=== PATIENT | female | born 1940 | race Caucasian/White ===

== ENCOUNTER → 2017-08-09 | Outpatient (CLI) | payer OTHER ==
[2016-02-21 18:27] VITALS: BP 175/88
--- NOTE | 2017-08-11 09:33 | MG ---
HISTORY: SCREENING Comparison: Multiple priors dating back to October 09, 2008 FINDINGS: Bilateral CC and MLO projections of the right and left breast were obtained. Heterogeneously dense f ibroglandular tissue is seen to be present without significant interval change. No suspicious chris ectural distortion, mass or clustered microcalcifications can be observed to suggest malignancy. No skin thickening or nipple retraction is appreciated. No pathological lymphadenopathy can be identif ied. Benign-appearing calcifications are noted within the right and left breast. IMPRESSION: NO RADIOGRAPHIC EVIDENCE OF MALIGNANCY. ACR CATEGORY 2 - benign findings. FOLLOW-UP EXAM 1 YEAR. Diagnostic CAD was utilized and reviewed. * 0 (ZERO) - ASSESSMENT INCOMPLETE; ADDITIONAL IMAGING IS NEEDED. * 1/ (ONE) - NEGATIVE. * 2/II (TWO) - BENIGN FINDINGS. * 3/III (THREE) - PROBABLY BENIGN FINDING; SHORT INTERVAL FOLLOW-UP SUGGESTED. * 4/IV (FOUR) - SUSPICIOUS ABNORMALITY; BIOPSY SHOULD BE CONSIDERED. * 5/V - HIGHLY SUSPICIOUS OF MALIGNANCY; BIOPSY SHOULD BE PERFORMED. A NEGATIVE X-RAY REPORT SHOULD NOT DELAY BIOPSY IF A DOMINANT OR CLINICALLY SUSPICIOUS MASS IS PRESENT; 4 TO 8 PERCENT OF CANCERS ARE NOT IDENTIFIED BY X-RAY. A NEGA TIVE REPORT MAY REINFORCE THE CLINICAL IMPRESSION. ADENOSIS AND DENSE BREASTS MAY OBSCURE AN UNDERLY ING NEOPLASM. Reported By:
== END ==
LOC: RAD 09:52
PROVIDERS: ATTEND Specialist
DX: Z12.31 Encounter for screening mammogram for malignant neoplasm of breast (principal)
CPT/HCPCS: 77067

== ENCOUNTER 2018-02-16 08:07 | Day surgery (SDC) | payer OTHER ==
[2018-02-16] MEDS ORDERED: D5 LR 1000 ML 1,000 ML IV ONE (08:17)
[2018-02-16] MEDS ORDERED: DIPRIVAN VIAL 20 ML ONE ×2 (10:17→10:31)
[2018-02-16 11:03] VITALS: BP 123/62
== END 2018-02-16 11:02 | disposition home or self-care (01) ==
LOC: SURG1 08:07
PROVIDERS: ATTEND Internal Medicine Gastroenterology
PROC: 0DJD8ZZ Inspection of Lower Intestinal Tract, Via Natural or Artificial Opening Endoscopic (ICD-10-PCS; principal; 2018-02-16 10:15)
PROC: 0DBK8ZX Excision of Ascending Colon, Via Natural or Artificial Opening Endoscopic, Diagnostic (ICD-10-PCS; principal; 2018-02-16 10:15)
DX: Z12.11 Encounter for screening for malignant neoplasm of colon (principal); K92.1 Melena; R19.4 Change in bowel habit; K63.5 Polyp of colon; K64.0 First degree hemorrhoids; Z86.010 Personal history of colon polyps; D12.2 Benign neoplasm of ascending colon
CPT/HCPCS: 99100; A4217; J3490; J7120

== ENCOUNTER 2021-09-21 09:13 | Inpatient (IN) ==
[2021-09-21 09:24] VITALS: BMI 32.2
--- NOTE | 2021-09-21 09:28 | DR.AMS ---
HPI Time Seen Time Seen by Provider: 09/21/21 09:24 Complaint Cheif Complaint Doctors Comments: 81 y/o female brought in via EMS for altered mental status, weakness. Has been fighting shingles past 2 weeks. Today developed diffuse weakness, conusion. Pt not a great historian. Denies headache, cough or dyspnea. Admits to nausea. No vomiting or diarrhea. No fever or chills. Denies urinary difficulty. Nothing makes it better , nothing makes it worse. Per family, having worsening weakness, confusion. COVID-19 Coronavirus risk:travel/contact w/high risk person: No Has patient experienced Coronavirus symptoms: Yes Reviewed Nurses Notes Reviewed: Yes Source History Provided: Patient, Family Member and EMS Mode of Arrival Mode of Arrival: EMS PMH PMH Past Medical History: Arthritis, Asthma, Dyslipidemia, Hypertension, Hypothyroidism and Kidney Stones Past Surgical History: Yes Surgical History: Ortho Surgery Family History Family Medical History: Diabetes Mellitus, Cancer, [place] and Hypertension Social History Do you use any recreational Drugs:: No ROS Review of Systems Constitutional: Malaise and Weakness Eyes: No Symptoms Reported ENTM: No Symptoms Reported Respiratoy: No Symptoms Reported Cardiovascular: No Symptoms Reported Gastrointestinal/Abdominal: Nausea Genitourinary: No Symptoms Reported Neurological: Weakness Musculoskeletal: No Symptoms Reported Integumentary: Rash (shingles) Hematologic/Lymphatic: No Symptoms Reported Psychiatric: Anxiety All Other Systems: Reviewed and Negative PE Vitals Vital Signs: Temp Pulse Resp BP Pulse Ox 09/21/21 14:00 89 47 H 159/69 91 L 09/21/21 13:45 88 35 H 96 09/21/21 13:30 88 30 H 178/76 96 09/21/21 13:15 87 36 H 96 09/21/21 13:00 89 30 H 162/72 96 09/21/21 12:45 88 47 H 96 09/21/21 12:30 88 27 H 168/74 97 09/21/21 12:15 87 33 H 97 09/21/21 12:00 87 30 H 168/71 98 09/21/21 11:45 86 30 H 97 09/21/21 11:30 88 30 H 170/77 98 09/21/21 11:15 87 57 H 98 09/21/21 11:00 87 32 H 174/76 97 09/21/21 10:45 86 33 H 98 09/21/21 10:30 86 32 H 159/74 97 09/21/21 10:15 89 44 H 09/21/21 10:00 87 30 H 158/75 09/21/21 09:45 87 34 H 95 09/21/21 09:30 89 40 H 162/75 95 09/21/21 09:23 91 H 34 H 95 09/21/21 09:19 98.1 F 94 H 22 169/77 95 08/05/21 19:09 167/73 General Limitations: No Limitations General Appearance: Alert, In No Apparent Distress and Anxious Head Head Exam: Normal Inspection, Atraumatic and Normocephalic Eyes Eye exam: Normal Appearance, PERRL and EOMI ENT ENT Exam: Normal Exam and Other (mucous membranes a bit dry) Nose Exam: Normal Nose Exam Neck Neck Exam: Normal Inspection and Full ROM; negative Tenderness Chest Chest Inspection: Normal Inspection Respiratory Respiratory Exam: Normal Lung Sounds Bilat; negative Accessory Muscle Use and Respiratory Distress Respiratory Exam: Bilateral: Clear to Auscultation Cardiovascular Cardiovascular Exam: Regular Rate, Normal Rhythm and Normal Heart Sounds Abdominal Exam Abdominal Exam: Normal Inspection, Normal Bowel Sounds and Soft; negative Tenderness Extremities Extremities Exam: Normal Inspection and Full ROM; negative Tenderness and Edema Neurological Neurological Exam: Alert, CN II-XII Intact and Other (+ fine tremor); negative Oriented X3 and Motor Sensory Deficit Psychological Psychiatric Exam: Anxious Skin Skin Exam: Warm and Dry MDM Differential Diagnosis Metabolic: Dehydration and Hyponatremia Infectious: UTI COURSE Treatment Treatment: 81 y/o female with increaing weakness and confusion, gradually worsening. No focal deficits. W/u initiated. 1318 - no obvious cause for her current condition. CT of head without acute abnormalities. Labs overall acceptable. TSH elevated a bit, needs higher dose of thyroid replacement medication. 1448 - no urine to collect so far. Discussed with Dr Spence's nurse. Pt currently being treated for a UTI, will admit for weakness/altered mental status/UTI. ROR Labs Reviewed Laboratory Results Reviewed?: Yes Result Diagrams: 09/21/21 09:42 09/21/21 10:05 Laboratory: WBC 10.5 X10^3/uL (3.6-10.0) H 09/21/21 09:42 RBC 4.86 X10^6/uL (3.5-5.4) 09/21/21 09:42 Hgb 15.2 g/dL (12.0-16.0) 09/21/21 09:42 Hct 44.1 % (36.0-47.0) 09/21/21 09:42 MCV 90.8 fL (80.0-100.0) 09/21/21 09:42 MCH 31.2 pg (27.0-34.0) 09/21/21 09:42 MCHC 34.4 g/dL (33.0-35.0) 09/21/21 09:42 RDW 15.0 % (11.6-16.5) 09/21/21 09:42 Plt Count 270 X10^3/uL (150.0-450.0) 09/21/21 09:42 MPV 9.1 fL (7.4-11.0) 09/21/21 09:42 Neut % (Auto) 61.8 % (42.0-75.0) 09/21/21 09:42 Lymph % (Auto) 25.5 % (21.0-51.0) 09/21/21 09:42 [place] % (Auto) 10.4 % (0.0-13.0) 09/21/21 09:42 Eos % (Auto) 1.4 % (0.9-2.9) 09/21/21 09:42 Baso % (Auto) 0.9 % (0.2-1.0) 09/21/21 09:42 Neut # (Auto) 6.5 x10^3/uL (2.2-4.8) H 09/21/21 09:42 Lymph # (Auto) 2.7 X10^3/uL (1.3-2.9) 09/21/21 09:42 [place] # (Auto) 1.1 x10^3/uL (0.3-0.8) H 09/21/21 09:42 Eos # (Auto) 0.2 x10^3/uL (0.0-0.2) 09/21/21 09:42 Baso # (Auto) 0.1 X10^3/uL (0.0-0.1) 09/21/21 09:42 Absolute Nucleated RBC 0.1 /100WBC 09/21/21 09:42 Sodium 138 mmol/L (136-145) 09/21/21 10:05 Corrected Sodium 138 mmol/L (136-145) 09/21/21 10:05 Potassium 3.5 mmol/L (3.5-5.1) 09/21/21 10:05 Chloride 98 mmol/L (98-107) 09/21/21 10:05 Carbon Dioxide 28.9 mmol/L (21-32) 09/21/21 10:05 BUN 22 mg/dL (7-18) H 09/21/21 10:05 Creatinine 1.04 mg/dL (0.55-1.02) H 09/21/21 10:05 Est GFR (MDRD) Af Amer > 60 (>60) 09/21/21 10:05 Est GFR (MDRD) Non-Af 54 (>60) L 09/21/21 10:05 Glucose 111 mg/dL (65-99) H 09/21/21 10:05 Calcium 9.9 mg/dL (8.5-10.1) 09/21/21 10:05 Corrected Calcium 10.5 mg/dL (8.5-10.1) H 09/21/21 10:05 Total Bilirubin 0.50 mg/dL (0.2-1.0) 09/21/21 10:05 AST 34 Units/L (15-37) 09/21/21 10:05 ALT 45 Units/L (12-78) 09/21/21 10:05 Alkaline Phosphatase 108 Units/L (46-116) 09/21/21 10:05 Creatine Kinase 52 Units/L (26-192) 09/21/21 10:05 CK-MB (CK-2) < 1.0 ng/mL (0-4.0) 09/21/21 10:05 CK/CKMB % Calc 1.9 % (<4) 09/21/21 10:05 Troponin I 0.03 ng/mL (0-1.5) 09/21/21 10:05 Total Protein 7.9 g/dL (6.4-8.2) 09/21/21 10:05 Albumin 3.3 g/dL (3.4-5.0) L 09/21/21 10:05 Globulin 4.6 g/dL (2.5-4.5) H 09/21/21 10:05 Albumin/Globulin Ratio 0.7 Ratio (1.1-2.1) L 09/21/21 10:05 Lipase 120 Units/L (73-393) 09/21/21 10:05 TSH 3rd Generation 30.092 uIU/mL (0.358-3.74) H 09/21/21 10:05 SARS-CoV-2 (PCR) Negative (NEGATIVE) 09/21/21 09:54 Influenza Type A (PCR) Negative (NEGATIVE) 09/21/21 09:54 Influenza Type B (PCR) Negative (NEGATIVE) 09/21/21 09:54 RSV (PCR) Negative (NEGATIVE) 09/21/21 09:54 Other Results Comments: Labs overall acceptable. No urine yet. EKG Rate: 88 [place]: LAD Rhythm: NSR Block: None Hypertrophy: None ST: Nonsp Opioid Opioid Risk Tool Age (Chad box if 16-45): No Total: 0 Total Score Risk Category: Low Risk Copyright: Hang FISHER predicting aberrant behaviors Diagnosis Discharge Problem: Generalized weakness, Acute UTI Altered mental status Qualifiers: Altered mental status type: unspecified Qualified Code(s): R41.82 - Altered mental status, unspecified
[2021-09-21] MEDS ORDERED: NS 500 ML IV 500 ML IV ONE ×2 (09:32→09:44)
[2021-09-21 09:52] LABS: BASOPHILS # (AUTO) 0.1 X10^3/uL (0.0-0.1); BASOPHILS % (AUTO) 0.9 % (0.2-1.0); EOSINOPHILS # (AUTO) 0.2 x10^3/uL (0.0-0.2); EOSINOPHILS % (AUTO) 1.4 % (0.9-2.9); HEMATOCRIT 44.1 % (36.0-47.0); HEMOGLOBIN 15.2 g/dL (12.0-16.0); LYMPHOCYTES # (AUTO) 2.7 X10^3/uL (1.3-2.9); LYMPHOCYTES % (AUTO) 25.5 % (21.0-51.0); MEAN CORPUSCULAR HEMOGLOBIN 31.2 pg (27.0-34.0); MEAN CORPUSCULAR HGB CONC 34.4 g/dL (33.0-35.0); MEAN CORPUSCULAR VOLUME 90.8 fL (80.0-100.0); MEAN PLATELET VOLUME 9.1 fL (7.4-11.0); MONOCYTES # (AUTO) 1.1 x10^3/uL (0.3-0.8); MONOCYTES % (AUTO) 10.4 % (0.0-13.0); NEUTROPHILS # (AUTO) 6.5 x10^3/uL (2.2-4.8); NEUTROPHILS % (AUTO) 61.8 % (42.0-75.0); PLATELET COUNT 270 X10^3/uL (150.0-450.0); RED BLOOD COUNT 4.86 X10^6/uL (3.5-5.4); WHITE BLOOD COUNT 10.5 X10^3/uL (3.6-10.0)
--- NOTE | 2021-09-21 10:19 | RAD ---
HISTORYAMS, WEAKNESS ASTHMA, HTN, ORTHOSTUDYCHEST, 1 VIEWCOMPARISONNoneFINDINGSThe trachea is midline. The cardiac silhouette is unremarkable. The lungs are clear without focal infiltrate or effusion. The bony thorax is unremarkable.IMPRESSIONNo acute cardiopulmonary findings .Electronically signed by: PERLA TONEY (Sep 21, 2021 10:17:53)
--- NOTE | 2021-09-21 10:30 | CT ---
HISTORYAltered mental statusSTUDYCT head without contrastTechnique: Axial noncontrast images with coronal and sagittal reformats. Dose reduction procedures were used with mA/kv adjusted for body size.[id number]/30/2019FINDINGSThe ventricles, cortical sulci, and other CSF spaces are enlarged consistent with generalized atrophy likely age related. There is slight decreased attenuation in the periventricular white matter suggestive of small vessel vascular disease. There are no focal areas of abnormal attenuation to suggest recent or remote CVA, hemorrhage, mass lesion, or extra-axial fluid collection. The visualized sinuses are clear. The calvarium is intact.IMPRESSIONNo acute intracranial abnormalityGeneralized atrophy likely age relatedSmall-vessel diseaseElectronically signed by: DAWNA PITTS (Sep 21, 2021 10:28:26)
[2021-09-21 10:40] LABS: ALANINE AMINOTRANSFERASE 45 Units/L (12-78); ALBUMIN 3.3 g/dL (3.4-5.0); ALKALINE PHOSPHATASE 108 Units/L (46-116); ASPARTATE AMINO TRANSFERASE 34 Units/L (15-37); BLOOD UREA NITROGEN 22 mg/dL (7-18); CALCIUM 9.9 mg/dL (8.5-10.1); CARBON DIOXIDE 28.9 mmol/L (21-32); CHLORIDE 98 mmol/L (98-107); CKMB % 1.9 % (<4); COR CA(FOR HYPOALB) 10.5 mg/dL (8.5-10.1); COR NA(FOR HYPERGLY) 138 mmol/L (136-145); CREATINE KINASE 52 Units/L (26-192); CREATINE KINASE MB < 1.0 ng/mL (0-4.0); CREATININE 1.04 mg/dL (0.55-1.02); LIPASE 120 Units/L (73-393); SODIUM 138 mmol/L (136-145); TOTAL PROTEIN 7.9 g/dL (6.4-8.2); TROPONIN I 0.03 ng/mL (0-1.5); TSH (3RD GENERATION) 30.092 uIU/mL (0.358-3.74); eGFR NON BLACK RACES 54 (>60)
[2021-09-21] MEDS: D5 1/2 NS 1,000 ML 1,000 ML IV SCH (15:59)
[2021-09-21] MEDS ORDERED: BUTT CREAM (COMPOUND) TOP PRN (17:50)
[2021-09-21] MEDS: TORADOL 15 MG VIAL IVP PRN (18:44)
[2021-09-22 05:21] LABS: BASOPHILS % (AUTO) 0.5 % (0.2-1.0); EOSINOPHILS # (AUTO) 0.3 x10^3/uL (0.0-0.2); HEMATOCRIT 45.2 % (36.0-47.0); HEMOGLOBIN 15.5 g/dL (12.0-16.0); LYMPHOCYTES # (AUTO) 3.6 X10^3/uL (1.3-2.9); LYMPHOCYTES % (AUTO) 35.4 % (21.0-51.0); MEAN CORPUSCULAR HEMOGLOBIN 31.5 pg (27.0-34.0); MEAN CORPUSCULAR HGB CONC 34.2 g/dL (33.0-35.0); MEAN PLATELET VOLUME 9.2 fL (7.4-11.0); MONOCYTES # (AUTO) 0.9 x10^3/uL (0.3-0.8); MONOCYTES % (AUTO) 9.2 % (0.0-13.0); NEUTROPHILS # (AUTO) 5.3 x10^3/uL (2.2-4.8); NEUTROPHILS % (AUTO) 51.9 % (42.0-75.0); PLATELET COUNT 228 X10^3/uL (150.0-450.0); RED BLOOD COUNT 4.91 X10^6/uL (3.5-5.4); RED CELL DISTRIBUTION WIDTH 14.9 % (11.6-16.5); WHITE BLOOD COUNT 10.2 X10^3/uL (3.6-10.0)
[2021-09-22 05:32] LABS: ALANINE AMINOTRANSFERASE 42 Units/L (12-78); ALBUMIN 3.1 g/dL (3.4-5.0); ALKALINE PHOSPHATASE 98 Units/L (46-116); ASPARTATE AMINO TRANSFERASE 39 Units/L (15-37); BLOOD UREA NITROGEN 19 mg/dL (7-18); CALCIUM 9.3 mg/dL (8.5-10.1); CARBON DIOXIDE 29.8 mmol/L (21-32); CHLORIDE 99 mmol/L (98-107); COR NA(FOR HYPERGLY) 136 mmol/L (136-145); CREATININE 0.87 mg/dL (0.55-1.02); SODIUM 136 mmol/L (136-145); TOTAL PROTEIN 7.4 g/dL (6.4-8.2); eGFR NON BLACK RACES > 60 (>60)
[2021-09-22] MEDS ORDERED: POTASSIUM CHLORIDE LIQ 20 MEQ UDC PO PRN (06:43)
[2021-09-22] MEDS ORDERED: POTASSIUM CHL 60 MEQ/NS 0.45% 500 ML IV PRN (06:43)
[2021-09-22] MEDS ORDERED: MAGNESIUM SULFATE 1 GRAM/100 mL PREMIX 1 G/100 ML BAG IV PRN (06:43)
[2021-09-22] MEDS ORDERED: POTASSIUM CHL 40 MEQ/NS 0.45% 500 ML IV PRN (06:43)
[2021-09-22] MEDS ORDERED: K-DUR TAB 20 MEQ PO PRN (06:43)
[2021-09-22] MEDS ORDERED: MICRO K EXTEN CAP 10 MEQ PO PRN (06:43)
[2021-09-22] MEDS ORDERED: K-RIDER 10 MEQ/NS 100 ML 10 MEQ/100 ML BAG IV PRN (06:43)
[2021-09-22] MEDS: INVANZ INJ 1 GM VIAL 1 GM in NS 100 ML IV + SPIKE MINIBAG* 100 ML IV SCH (08:06)
[2021-09-22] MEDS: D5 1/2 NS 1,000 ML 1,000 ML IV SCH ×2 (08:06→17:02)
--- NOTE | 2021-09-22 11:01 | MRI ---
HISTORY: Weakness, AMS, slurred speechStudy: MRI Brain without contrastComparison: Head CT 09/21/2021Technique: Multiplanar multi-sequence MRI of the brain was performed with standard departmental protocolFindings:The brain parenchyma is within normal limits for age. There is hyperintense signal in the bilateral occipital sulci, with no corresponding abnormality on T2 star, likely representing sequela of supplemental oxygen, correlate clinically. Noncontrast head CT could be performed for further evaluation to exclude subarachnoid hemorrhage. There are subcortical and periventricular white matter hyperintense signal changes likely due to chronic microvascular disease. There is no restricted diffusion to suggest acute infarct. No mass, midline shift. Multiple dilated perivascular spaces are present. Please note sensitivity to detect malignancy is decreased without IV contrast.The T2 flow voids appear normal . The midline structures appear unremarkable . The soft tissues are intact . The visualized paranasal sinuses and mastoid air cells are clear. Orbits and globes are unremarkable.IMPRESSION:Nonspecific hyperintense signal in the bilateral occipital sulci. Findings can be associated with use of supplemental oxygen, correlate clinically. Subarachnoid hemorrhage felt less likely but could be further evaluated with noncontrast head CT.No evidence of acute infarction.Cerebral volume loss and nonspecific white matter changes likely due to chronic microvascular disease.Electronically signed by: KRISTIN KIDD (Sep 22, 2021 11:00:04)
[2021-09-22] MEDS: HYZAAR 50/12.5 MG PO SCH (11:26)
[2021-09-22] MEDS: LIPITOR TAB 40 MG PO SCH (11:27)
[2021-09-22] MEDS: KLONOPIN TAB 1 MG PO SCH ×2 (11:27→20:52)
[2021-09-22] MEDS: PROzac PO SCH (11:27)
[2021-09-22] MEDS: SYNTHROID 125 mcg TAB PO SCH (11:27)
[2021-09-22] MEDS: PriLOSEC PO SCH (11:27)
[2021-09-22] MEDS: LOVENOX INJ 40 MG SYR SC SCH (13:13)
--- NOTE | 2021-09-22 15:19 | DR.H&P ---
H&P - History & Physical for Day of: H&P Date: 09/21/21 - Chief Complaint Chief Complaint: AMS, WEAKNESS, SLURRED SPEECH - History of Present Illness History of Present Illness: IS A 81 YEAR OLD PATIENT OF OURS. SHE PRESENTED TO THE ER VIA EMS WITH REPORTS OF ALTERED MENTAL STATUS, WEAKNESS, LETHARGY, AND SLURRED SPEECH. PATIENTS SPOUSE REPORTS THAT SHE WAS DIAGNOSED WITH SHINGLES ABOUT TWO WEEKS AGO. SHE HAS HAD UNSTEADY GAIT AND DIFFICULTY PERFORMING ADLs, WHICH BEGAN ON 09/17/21. FAMILY TOOK PATIENT TO THE ER AT [facility] IN [place], [place] ON 09/17. SHE WAS DIAGNOSED WITH A URINARY TRACT INFECTION. SHE WAS SENT HOME WITH A PRESCRIPTION FOR CEFDINIR 300MG PO BID. PATIENT HAS BEEN TAKING CEFDINIR SINCE THEN. HER PMH INCLUDES: ARTHRITIS, ASTHMA, DYSLIPIDEMIA, HTN, HYPOTHYROIDISM, KIDNEY STONES, AND ORTHO SURGERY. ON ARRIVAL TO THE ER YESTERDAY, PATIENT WAS NOTED TO BE LETHARGIC. SPEECH WAS SLURRED AND SHE WAS UNABLE TO FOLLOW COMMANDS. HER VITALS ON ARRIVAL WERE: 98.1-94-22-95%-169/77. LABS WERE OBTAINED. ABNORMAL LAB VALUES INCLUDE THE FOLLOWING: WBC 10.5, BUN 22, CREATININE 1.04, GLUCOSE 111, ALBUMIN 3.3, GLOBULIN 4.6, TSH 30.092. COVID, INFLUENZA, AND RSV NEGATIVE. A CHEST XRAY WAS OBTAINED AND REVEALED: NO ACUTE CARDIOPULMONARY FINDINGS. A BRAIN CT WITHOUT CONTRAST WAS OBTAINED AND REVEALED: No acute intracranial abnormality. Generalized atrophy likely age related. Small-vessel disease. AN EKG WAS OBTAINED AND REVEALED: SINUS RHYTHM WITH HR 88. SHE WAS GIVEN A NORMAL SALINE BOLUS IN THE ER. SHE WAS ADMITTED TO THE HOSPITAL FOR FURTHER EVALUATION AND TREATMENT OF UTI, GENERALIZED WEAKNESS, AMS. SHE WAS STARTED ON D5/12NS AT 75 ML/HR, INVANZ 1G IV DAILY, LOVENOX 40MG SC DAILY, THE POTASSIUM AND MAGNESIUM PROTOCOLS, AND HER HOME MEDICATIONS OF LIPITOR 40MG PO DAILY, KLONOPIN 1MG PO BID, FLEXERIL 10MG PO TID PRN, PROZAC 20MG PO DAILY, HYZAAR, AND PRILOSEC WERE RESUMED. WE ALSO RESUMED HER SYNTHROID, BUT INCREASED IT TO 125MCG PO DAILY. OBTAIN BRAIN MRI TO RULE OUT CVA. OTHERWISE, WE PLAN TO FOLLOW UP WITH AM LABS AND CONTINUE TO MONITOR. TIME SPENT ON CLINICAL ASSESSMENT, REVIEWING LABS AND IMAGING, DECISION MAKING, AND DOCUMENTATION GREATER THAN 75 MINUTES. - Past Medical History Past Medical History: Hypertension, Dyslipidemia, Hypothyroidism, Asthma, Arthritis, Kidney Stones - Past Surgical History Surgical History: Ortho Surgery - Family History Family Medical History: Diabetes Mellitus, Cancer, [place], Hypertension - Social History Does patient currently use any type of tobacco product: No Have you used tobacco products in the last 12 months: No Type of Tobacco Use: None Does any household member use tobacco: No Alcohol Use: None Drug Use: None - Medications Home Medications: diphenhydramine [From Benadryl] Allergy (Verified 08/05/21 22:50) iodine Allergy (Verified 08/05/21 19:08) iron Allergy (Verified 08/05/21 19:08) morphine Allergy (Verified 08/05/21 22:50) Penicillins Allergy (Verified 08/05/21 22:50) CONTINUE taking the following medications cefdinir 300 mg PO BID 09/21/21 [History] - Review of Systems Constitutional: Weakness, Malaise Eyes: No Symptoms Reported ENT: No Symptoms Reported Respiratory: Shortness of Breath Cardiovascular: No Symptoms Reported Gastrointestinal: No Symptoms Reported Genitourinary: No Symptoms Reported Musculoskeletal: No Symptoms Reported Neurological: Weakness - Physical Exam Vital Signs: Temperature 97.6 F Pulse Rate [Left Radial] 90 Pulse Rate 89 Respiratory Rate 26 Blood Pressure [Left Arm] 150/68 Blood Pressure 159/70 O2 Sat by Pulse Oximetry 95 Oriented: Not Oriented Eyes: Normal Ear: Normal Nose: Normal Throat: Normal Respiratory: Diminished Throughout Cardiovascular: Normal : Normal Auscultation: Bowel Sounds: Normal Palpation: Normal Tenderness: Suprapubic Skin: Decreased Turgur Musculoskeletal: Normal Psychiatric: Other (LETHARGIC) Mood Description: Calm Affect: Flat Speech Pattern: Slurred - Assessment/Plan (1) Acute UTI Status: Acute Plan: ADMIT, D5/12NS AT 75 ML/HR, INVANZ 1G IV DAILY, LOVENOX 40MG SC DAILY, THE POTASSIUM AND MAGNESIUM PROTOCOLS, RESUME HOME MEDS (2) Generalized weakness Status: Acute Plan: OBTAIN BRAIN MRI TO RULE OUT CVA (3) Altered mental status Qualifiers: Altered mental status type: transient alteration of awareness Qualified Code(s): R40.4 - Transient alteration of awareness Status: Acute - Allergies Allergies/Adverse Reactions: Allergies Allergy/AdvReac Type Severity Reaction Status Date / Time diphenhydramine Allergy Verified 08/05/21 22:50 [From Shaun] iodine Allergy Verified 08/05/21 19:08 iron Allergy Verified 08/05/21 19:08 morphine Allergy Verified 08/05/21 22:50 Penicillins Allergy Verified 08/05/21 22:50
[2021-09-22] MEDS: TORADOL 15 MG VIAL IVP PRN (15:50)
[2021-09-22] MEDS: KLOR-CON PO PRN (18:20)
[2021-09-23] MEDS: D5 1/2 NS 1,000 ML 1,000 ML IV SCH ×3 (00:30→15:14)
[2021-09-23 06:13] LABS: BASOPHILS % (AUTO) 0.5 % (0.2-1.0); EOSINOPHILS # (AUTO) 0.3 x10^3/uL (0.0-0.2); EOSINOPHILS % (AUTO) 3.4 % (0.9-2.9); HEMATOCRIT 39.6 % (36.0-47.0); HEMOGLOBIN 13.3 g/dL (12.0-16.0); LYMPHOCYTES # (AUTO) 2.9 X10^3/uL (1.3-2.9); LYMPHOCYTES % (AUTO) 36.5 % (21.0-51.0); MEAN CORPUSCULAR HGB CONC 33.7 g/dL (33.0-35.0); MEAN PLATELET VOLUME 8.9 fL (7.4-11.0); MONOCYTES # (AUTO) 0.5 x10^3/uL (0.3-0.8); MONOCYTES % (AUTO) 6.8 % (0.0-13.0); NEUTROPHILS # (AUTO) 4.2 x10^3/uL (2.2-4.8); NEUTROPHILS % (AUTO) 52.8 % (42.0-75.0); PLATELET COUNT 223 X10^3/uL (150.0-450.0); RED CELL DISTRIBUTION WIDTH 14.5 % (11.6-16.5); WHITE BLOOD COUNT 7.9 X10^3/uL (3.6-10.0)
[2021-09-23 06:25] LABS: ALANINE AMINOTRANSFERASE 43 Units/L (12-78); ALBUMIN 2.6 g/dL (3.4-5.0); ALKALINE PHOSPHATASE 82 Units/L (46-116); ASPARTATE AMINO TRANSFERASE 33 Units/L (15-37); BLOOD UREA NITROGEN 14 mg/dL (7-18); CALCIUM 8.7 mg/dL (8.5-10.1); CARBON DIOXIDE 28.4 mmol/L (21-32); CHLORIDE 101 mmol/L (98-107); COR CA(FOR HYPOALB) 9.8 mg/dL (8.5-10.1); COR NA(FOR HYPERGLY) 136 mmol/L (136-145); CREATININE 0.86 mg/dL (0.55-1.02); SODIUM 136 mmol/L (136-145); TOTAL PROTEIN 6.3 g/dL (6.4-8.2); eGFR NON BLACK RACES > 60 (>60)
[2021-09-23] MEDS: INVANZ INJ 1 GM VIAL 1 GM in NS 100 ML IV + SPIKE MINIBAG* 100 ML IV SCH (09:39)
[2021-09-23] MEDS: SYNTHROID 125 mcg TAB PO SCH (09:39)
[2021-09-23] MEDS: HYZAAR 50/12.5 MG PO SCH (09:39)
[2021-09-23] MEDS: LOVENOX INJ 40 MG SYR SC SCH (09:40)
[2021-09-23] MEDS: KLONOPIN TAB 1 MG PO SCH ×2 (09:40→20:52)
[2021-09-23] MEDS: LIPITOR TAB 40 MG PO SCH (09:40)
[2021-09-23] MEDS: PriLOSEC PO SCH (09:40)
[2021-09-23] MEDS: PROzac PO SCH (09:40)
[2021-09-23] MEDS: ECOTRIN TAB 325 MG PO SCH (10:12)
[2021-09-23] MEDS: CRESTOR TAB 10 MG PO SCH (20:51)
[2021-09-24 05:00] LABS: BASOPHILS % (AUTO) 0.6 % (0.2-1.0); EOSINOPHILS # (AUTO) 0.2 x10^3/uL (0.0-0.2); EOSINOPHILS % (AUTO) 2.9 % (0.9-2.9); HEMATOCRIT 38.8 % (36.0-47.0); LYMPHOCYTES # (AUTO) 2.8 X10^3/uL (1.3-2.9); MEAN CORPUSCULAR HEMOGLOBIN 30.9 pg (27.0-34.0); MEAN CORPUSCULAR HGB CONC 33.5 g/dL (33.0-35.0); MEAN CORPUSCULAR VOLUME 92.2 fL (80.0-100.0); MEAN PLATELET VOLUME 8.9 fL (7.4-11.0); MONOCYTES # (AUTO) 0.6 x10^3/uL (0.3-0.8); MONOCYTES % (AUTO) 7.1 % (0.0-13.0); NEUTROPHILS # (AUTO) 4.7 x10^3/uL (2.2-4.8); NEUTROPHILS % (AUTO) 55.4 % (42.0-75.0); PLATELET COUNT 242 X10^3/uL (150.0-450.0); RED BLOOD COUNT 4.21 X10^6/uL (3.5-5.4); RED CELL DISTRIBUTION WIDTH 14.7 % (11.6-16.5); WHITE BLOOD COUNT 8.4 X10^3/uL (3.6-10.0)
[2021-09-24 05:23] LABS: ALANINE AMINOTRANSFERASE 39 Units/L (12-78); ALBUMIN 2.5 g/dL (3.4-5.0); ALKALINE PHOSPHATASE 82 Units/L (46-116); ASPARTATE AMINO TRANSFERASE 32 Units/L (15-37); BLOOD UREA NITROGEN 10 mg/dL (7-18); CALCIUM 8.7 mg/dL (8.5-10.1); CARBON DIOXIDE 29.9 mmol/L (21-32); CHLORIDE 103 mmol/L (98-107); COR CA(FOR HYPOALB) 9.9 mg/dL (8.5-10.1); COR NA(FOR HYPERGLY) 137 mmol/L (136-145); CREATININE 0.89 mg/dL (0.55-1.02); SODIUM 137 mmol/L (136-145); TOTAL PROTEIN 6.2 g/dL (6.4-8.2); eGFR NON BLACK RACES > 60 (>60)
[2021-09-24] MEDS: TORADOL 15 MG VIAL IVP PRN (05:50)
[2021-09-24] MEDS: D5 1/2 NS 1,000 ML 1,000 ML IV SCH ×4 (07:22→22:30)
[2021-09-24] MEDS: LOVENOX INJ 40 MG SYR SC SCH (08:53)
[2021-09-24] MEDS: PriLOSEC PO SCH (08:54)
[2021-09-24] MEDS: PROzac PO SCH (08:54)
[2021-09-24] MEDS: KLONOPIN TAB 1 MG PO SCH ×2 (08:54→20:52)
[2021-09-24] MEDS: ECOTRIN TAB 325 MG PO SCH (08:54)
[2021-09-24] MEDS: SYNTHROID 125 mcg TAB PO SCH (08:54)
[2021-09-24] MEDS: HYZAAR 50/12.5 MG PO SCH (08:55)
[2021-09-24] MEDS: INVANZ INJ 1 GM VIAL 1 GM in NS 100 ML IV + SPIKE MINIBAG* 100 ML IV SCH (08:55)
--- NOTE | 2021-09-24 10:05 | PCM.PROG ---
Progress Note - Progress Note for Day of Date of Exam: 09/23/21 - Subjective Subjective: WAS ADMITTED FOR TREATMENT OF ACUTE UTI FAILED OUTPATIENT TREATMENT, GENERALIZED WEAKNESS, AND ALTERED MENTAL STATUS. TODAY, SHE IS ALERT AND ORIENTED, LYING IN BED ON MORNING ROUNDS. SHE CONTINUES WITH GENERALIZED WEAKNESS AND CONFUSION AT TIMES. SPOUSE REPORTS THAT SHE HAS DIFFICULTY EXPRESSING WHAT SHE IS TRYING TO SAY AT TIMES. SHE REQUIRES MODERATE ASSISTANCE FOR ADLs. ON EXAMINATION, HEART IS REGULAR IN RATE AND RHYTHM. BILATERAL LUNGS ARE NOTED WITH DIMINISHED LUNG SOUNDS THROUGHOUT. ABDOMEN IS ROUND, SOFT, AND NON-TENDER WITH NORMAL BOWEL SOUNDS NOTED IN ALL QUADRANTS. HER VITALS THIS MORNING ARE: 97.6-83-18-90%-148/67. LABS WERE OBTAINED. SHE IS HEMODYNAMICALLY STABLE. A BRAIN MRI WAS OBTAINED YESTERDAY AND REVEALED: Nonspecific hyperintense signal in the bilateral occipital sulci. Findings can be associated with use of supplemental oxygen, correlate clinically. Subarachnoid hemorrhage felt less likely but could be further evaluated with noncontrast head CT. No evidence of acute infarction. Cerebral volume loss and nonspecific white matter changes likely due to chronic microvascular disease. D5/12NS AT 75 ML/HR, INVANZ 1G IV DAILY, LOVENOX 40MG SC DAILY, THE POTASSIUM AND MAGNESIUM PROTOCOLS, AND HER HOME MEDICATIONS OF LIPITOR 40MG PO DAILY, KLONOPIN 1MG PO BID, FLEXERIL 10MG PO TID PRN, PROZAC 20MG PO DAILY, HYZAAR, SYNTHROID, AND PRILOSEC WERE RESUMED. WE WILL HAVE PHYSICAL, OCCUPATIONAL, AND SPEECH THERAPIES EVALUATE PATIENT TODAY. WE WILL ADD ECOTRIN 325MG PO DAILY AND CRESTOR 10MG PO HS. OTHERWISE, WE PLAN TO FOLLOW UP WITH AM LABS AND CONTINUE TO MONITOR. - Past Medical Family Social History Past Med/Fam/Surg Hx: No changes since H&P Allergies: Allergies diphenhydramine [From Benadryl] Allergy (Verified 08/05/21 22:50) iodine Allergy (Verified 08/05/21 19:08) iron Allergy (Verified 08/05/21 19:08) morphine Allergy (Verified 08/05/21 22:50) Penicillins Allergy (Verified 08/05/21 22:50) - Review of Systems ROS: No change since H&P - Vital Signs and I&O's Vital Signs: Temperature 97.8 F Pulse Rate [Left Radial] 74 Pulse Rate 89 Respiratory Rate 20 Blood Pressure [Left Arm] 132/56 Blood Pressure 159/70 O2 Sat by Pulse Oximetry 93 Intake and Output: Intake & Output 09/21/21 09/22/21 09/23/21 09/24/21 11:59 11:59 11:59 11:59 Intake Total 1344 / 1344 2977 / 2977 2215 / 2215 Balance 1344 / 1344 2977 / 2977 2215 / 2215 - Physical Exam Oriented: Person Eyes: Normal Ear: Normal Nose: Normal Throat: Normal Cardiovascular: Normal : Normal Auscultation: Bowel Sounds: Normal Palpation: Normal Tenderness: Suprapubic Skin: Decreased Turgur Musculoskeletal: Normal Psychiatric: Other (LETHARGIC) Mood Description: Calm Affect: Flat Speech Pattern: Clear, Appropriate - Laboratory and Diagnostics Result Diagrams: 09/24/21 03:55 09/24/21 03:55 Labs: Laboratory WBC 8.4 X10^3/uL (3.6-10.0) 09/24/21 03:55 RBC 4.21 X10^6/uL (3.5-5.4) 09/24/21 03:55 Hgb 13.0 g/dL (12.0-16.0) 09/24/21 03:55 Hct 38.8 % (36.0-47.0) 09/24/21 03:55 MCV 92.2 fL (80.0-100.0) 09/24/21 03:55 MCH 30.9 pg (27.0-34.0) 09/24/21 03:55 MCHC 33.5 g/dL (33.0-35.0) 09/24/21 03:55 RDW 14.7 % (11.6-16.5) 09/24/21 03:55 Plt Count 242 X10^3/uL (150.0-450.0) 09/24/21 03:55 MPV 8.9 fL (7.4-11.0) 09/24/21 03:55 Neut % (Auto) 55.4 % (42.0-75.0) 09/24/21 03:55 Lymph % (Auto) 34.0 % (21.0-51.0) 09/24/21 03:55 [place] % (Auto) 7.1 % (0.0-13.0) 09/24/21 03:55 Eos % (Auto) 2.9 % (0.9-2.9) 09/24/21 03:55 Baso % (Auto) 0.6 % (0.2-1.0) 09/24/21 03:55 Neut # (Auto) 4.7 x10^3/uL (2.2-4.8) 09/24/21 03:55 Lymph # (Auto) 2.8 X10^3/uL (1.3-2.9) 09/24/21 03:55 [place] # (Auto) 0.6 x10^3/uL (0.3-0.8) 09/24/21 03:55 Eos # (Auto) 0.2 x10^3/uL (0.0-0.2) 09/24/21 03:55 Baso # (Auto) 0.0 X10^3/uL (0.0-0.1) 09/24/21 03:55 Absolute Nucleated RBC 0.0 /100WBC 09/24/21 03:55 Sodium 137 mmol/L (136-145) 09/24/21 03:55 Corrected Sodium 137 mmol/L (136-145) 09/24/21 03:55 Potassium 3.7 mmol/L (3.5-5.1) 09/24/21 03:55 Chloride 103 mmol/L (98-107) 09/24/21 03:55 Carbon Dioxide 29.9 mmol/L (21-32) 09/24/21 03:55 BUN 10 mg/dL (7-18) 09/24/21 03:55 Creatinine 0.89 mg/dL (0.55-1.02) 09/24/21 03:55 Est GFR (MDRD) Af Amer > 60 (>60) 09/24/21 03:55 Est GFR (MDRD) Non-Af > 60 (>60) 09/24/21 03:55 Glucose 120 mg/dL (65-99) H 09/24/21 03:55 Calcium 8.7 mg/dL (8.5-10.1) 09/24/21 03:55 Corrected Calcium 9.9 mg/dL (8.5-10.1) 09/24/21 03:55 Magnesium 2.1 mg/dL (1.7-2.9) 09/22/21 04:16 Total Bilirubin 0.30 mg/dL (0.2-1.0) 09/24/21 03:55 AST 32 Units/L (15-37) 09/24/21 03:55 ALT 39 Units/L (12-78) 09/24/21 03:55 Alkaline Phosphatase 82 Units/L (46-116) 09/24/21 03:55 Ammonia 15 umol/L (11-32) 09/22/21 09:50 Creatine Kinase 52 Units/L (26-192) 09/21/21 10:05 CK-MB (CK-2) < 1.0 ng/mL (0-4.0) 09/21/21 10:05 CK/CKMB % Calc 1.9 % (<4) 09/21/21 10:05 Troponin I 0.03 ng/mL (0-1.5) 09/21/21 10:05 Total Protein 6.2 g/dL (6.4-8.2) L 09/24/21 03:55 Albumin 2.5 g/dL (3.4-5.0) L 09/24/21 03:55 Globulin 3.7 g/dL (2.5-4.5) 09/24/21 03:55 Albumin/Globulin Ratio 0.7 Ratio (1.1-2.1) L 09/24/21 03:55 Lipase 120 Units/L (73-393) 09/21/21 10:05 TSH 3rd Generation 30.092 uIU/mL (0.358-3.74) H 09/21/21 10:05 SARS-CoV-2 (PCR) Negative (NEGATIVE) 09/21/21 09:54 Influenza Type A (PCR) Negative (NEGATIVE) 09/21/21 09:54 Influenza Type B (PCR) Negative (NEGATIVE) 09/21/21 09:54 RSV (PCR) Negative (NEGATIVE) 09/21/21 09:54 - Plan (1) Acute UTI Status: Acute Plan: D5/12NS AT 75 ML/HR, INVANZ 1G IV DAILY, LOVENOX 40MG SC DAILY, CRESTOR 10MG PO HS, ECOTRIN 325MG PO DAILY, THE POTASSIUM AND MAGNESIUM PROTOCOLS, RESUME HOME MEDS (2) TIA (transient ischemic attack) Status: Acute (3) Generalized weakness Status: Acute (4) Altered mental status Status: Acute Qualifiers: Altered mental status type: transient alteration of awareness Qualified Code(s): R40.4 - Transient alteration of awareness
--- NOTE | 2021-09-24 10:09 | PCM.PROG ---
Progress Note - Progress Note for Day of Date of Exam: 09/24/21 - Subjective Subjective: WAS ADMITTED FOR TREATMENT OF ACUTE UTI FAILED OUTPATIENT TREATMENT, TIA, GENERALIZED WEAKNESS, AND ALTERED MENTAL STATUS. TODAY, SHE IS ALERT AND ORIENTED, LYING IN BED ON MORNING ROUNDS. SHE CONTINUES WITH GENERALIZED WEAKNESS AND CONTINUES TO REQUIRE ASSISTANCE WITH AMBULATING AND ADLs. SPOUSE REPORTS THAT SHE HAS DIFFICULTY EXPRESSING WHAT SHE IS TRYING TO SAY AT TIMES. ON EXAMINATION, HEART IS REGULAR IN RATE AND RHYTHM. BILATERAL LUNGS ARE NOTED WITH DIMINISHED LUNG SOUNDS THROUGHOUT. ABDOMEN IS ROUND, SOFT, AND NON-TENDER WITH NORMAL BOWEL SOUNDS NOTED IN ALL QUADRANTS. HER VITALS THIS MORNING ARE: 97.8-74-20-93%-132/56. LABS WERE OBTAINED. SHE IS HEMODYNAMICALLY STABLE. SHE IS CURRENTLY RECEIVING D5/12NS AT 75 ML/HR, INVANZ 1G IV DAILY, LOVENOX 40MG SC DAILY, ECOTRIN 325MG PO DAILY, CRESTOR 10MG PO HS, THE POTASSIUM AND MAGNESIUM PROTOCOLS, AND HER HOME MEDICATIONS OF LIPITOR 40MG PO DAILY, KLONOPIN 1MG PO BID, FLEXERIL 10MG PO TID PRN, PROZAC 20MG PO DAILY, HYZAAR, SYNTHROID, AND PRILOSEC WERE RESUMED. WE WILL HAVE PHYSICAL, OCCUPATIONAL, AND SPEECH THERAPIES CONTINUE TO WORK WITH PATIENT TODAY. OTHERWISE, WE PLAN TO FOLLOW UP WITH AM LABS AND CONTINUE TO MONITOR. - Past Medical Family Social History Past Med/Fam/Surg Hx: No changes since H&P Allergies: Allergies diphenhydramine [From Benadryl] Allergy (Verified 08/05/21 22:50) iodine Allergy (Verified 08/05/21 19:08) iron Allergy (Verified 08/05/21 19:08) morphine Allergy (Verified 08/05/21 22:50) Penicillins Allergy (Verified 08/05/21 22:50) - Review of Systems ROS: No change since H&P - Vital Signs and I&O's Vital Signs: Temperature 97.8 F Pulse Rate [Left Radial] 74 Pulse Rate 89 Respiratory Rate 20 Blood Pressure [Left Arm] 132/56 Blood Pressure 159/70 O2 Sat by Pulse Oximetry 93 Intake and Output: Intake & Output 09/21/21 09/22/21 09/23/21 09/24/21 11:59 11:59 11:59 11:59 Intake Total 1344 / 1344 2977 / 2977 2215 / 2215 Balance 1344 / 1344 2977 / 2977 2214 / 2214 - Physical Exam Oriented: Person Eyes: Normal Ear: Normal Nose: Normal Throat: Normal Cardiovascular: Normal : Normal Auscultation: Bowel Sounds: Normal Tenderness: Suprapubic Skin: Decreased Turgur Musculoskeletal: Normal Psychiatric: Other (LETHARGIC) Mood Description: Calm Affect: Flat Speech Pattern: Clear, Appropriate - Laboratory and Diagnostics Result Diagrams: 09/24/21 03:55 09/24/21 03:55 Labs: Laboratory WBC 8.4 X10^3/uL (3.6-10.0) 09/24/21 03:55 RBC 4.21 X10^6/uL (3.5-5.4) 09/24/21 03:55 Hgb 13.0 g/dL (12.0-16.0) 09/24/21 03:55 Hct 38.8 % (36.0-47.0) 09/24/21 03:55 MCV 92.2 fL (80.0-100.0) 09/24/21 03:55 MCH 30.9 pg (27.0-34.0) 09/24/21 03:55 MCHC 33.5 g/dL (33.0-35.0) 09/24/21 03:55 RDW 14.7 % (11.6-16.5) 09/24/21 03:55 Plt Count 242 X10^3/uL (150.0-450.0) 09/24/21 03:55 MPV 8.9 fL (7.4-11.0) 09/24/21 03:55 Neut % (Auto) 55.4 % (42.0-75.0) 09/24/21 03:55 Lymph % (Auto) 34.0 % (21.0-51.0) 09/24/21 03:55 [place] % (Auto) 7.1 % (0.0-13.0) 09/24/21 03:55 Eos % (Auto) 2.9 % (0.9-2.9) 09/24/21 03:55 Baso % (Auto) 0.6 % (0.2-1.0) 09/24/21 03:55 Neut # (Auto) 4.7 x10^3/uL (2.2-4.8) 09/24/21 03:55 Lymph # (Auto) 2.8 X10^3/uL (1.3-2.9) 09/24/21 03:55 [place] # (Auto) 0.6 x10^3/uL (0.3-0.8) 09/24/21 03:55 Eos # (Auto) 0.2 x10^3/uL (0.0-0.2) 09/24/21 03:55 Baso # (Auto) 0.0 X10^3/uL (0.0-0.1) 09/24/21 03:55 Absolute Nucleated RBC 0.0 /100WBC 09/24/21 03:55 Sodium 137 mmol/L (136-145) 09/24/21 03:55 Corrected Sodium 137 mmol/L (136-145) 09/24/21 03:55 Potassium 3.7 mmol/L (3.5-5.1) 09/24/21 03:55 Chloride 103 mmol/L (98-107) 09/24/21 03:55 Carbon Dioxide 29.9 mmol/L (21-32) 09/24/21 03:55 BUN 10 mg/dL (7-18) 09/24/21 03:55 Creatinine 0.89 mg/dL (0.55-1.02) 09/24/21 03:55 Est GFR (MDRD) Af Amer > 60 (>60) 09/24/21 03:55 Est GFR (MDRD) Non-Af > 60 (>60) 09/24/21 03:55 Glucose 120 mg/dL (65-99) H 09/24/21 03:55 Calcium 8.7 mg/dL (8.5-10.1) 09/24/21 03:55 Corrected Calcium 9.9 mg/dL (8.5-10.1) 09/24/21 03:55 Magnesium 2.1 mg/dL (1.7-2.9) 09/22/21 04:16 Total Bilirubin 0.30 mg/dL (0.2-1.0) 09/24/21 03:55 AST 32 Units/L (15-37) 09/24/21 03:55 ALT 39 Units/L (12-78) 09/24/21 03:55 Alkaline Phosphatase 82 Units/L (46-116) 09/24/21 03:55 Ammonia 15 umol/L (11-32) 09/22/21 09:50 Creatine Kinase 52 Units/L (26-192) 09/21/21 10:05 CK-MB (CK-2) < 1.0 ng/mL (0-4.0) 09/21/21 10:05 CK/CKMB % Calc 1.9 % (<4) 09/21/21 10:05 Troponin I 0.03 ng/mL (0-1.5) 09/21/21 10:05 Total Protein 6.2 g/dL (6.4-8.2) L 09/24/21 03:55 Albumin 2.5 g/dL (3.4-5.0) L 09/24/21 03:55 Globulin 3.7 g/dL (2.5-4.5) 09/24/21 03:55 Albumin/Globulin Ratio 0.7 Ratio (1.1-2.1) L 09/24/21 03:55 Lipase 120 Units/L (73-393) 09/21/21 10:05 TSH 3rd Generation 30.092 uIU/mL (0.358-3.74) H 09/21/21 10:05 SARS-CoV-2 (PCR) Negative (NEGATIVE) 09/21/21 09:54 Influenza Type A (PCR) Negative (NEGATIVE) 09/21/21 09:54 Influenza Type B (PCR) Negative (NEGATIVE) 09/21/21 09:54 RSV (PCR) Negative (NEGATIVE) 09/21/21 09:54 - Plan (1) Acute UTI Status: Acute Plan: D5/12NS AT 75 ML/HR, INVANZ 1G IV DAILY, LOVENOX 40MG SC DAILY, CRESTOR 10MG PO HS, ECOTRIN 325MG PO DAILY, THE POTASSIUM AND MAGNESIUM PROTOCOLS, RESUME HOME MEDS (2) TIA (transient ischemic attack) Status: Acute (3) Generalized weakness Status: Acute Plan: OBTAIN BRAIN MRI TO RULE OUT CVA (4) Altered mental status Status: Acute Qualifiers: Altered mental status type: transient alteration of awareness Qualified Code(s): R40.4 - Transient alteration of awareness
[2021-09-24] MEDS: CRESTOR TAB 10 MG PO SCH (20:52)
[2021-09-24] MEDS ORDERED: COLACE CAP 100 MG PO SCH (21:00)
[2021-09-25 05:30] LABS: BASOPHILS # (AUTO) 0.1 X10^3/uL (0.0-0.1); BASOPHILS % (AUTO) 0.7 % (0.2-1.0); EOSINOPHILS # (AUTO) 0.3 x10^3/uL (0.0-0.2); EOSINOPHILS % (AUTO) 3.2 % (0.9-2.9); HEMATOCRIT 36.2 % (36.0-47.0); HEMOGLOBIN 12.4 g/dL (12.0-16.0); LYMPHOCYTES # (AUTO) 2.3 X10^3/uL (1.3-2.9); LYMPHOCYTES % (AUTO) 28.1 % (21.0-51.0); MEAN CORPUSCULAR HEMOGLOBIN 31.4 pg (27.0-34.0); MEAN CORPUSCULAR HGB CONC 34.3 g/dL (33.0-35.0); MEAN CORPUSCULAR VOLUME 91.4 fL (80.0-100.0); MEAN PLATELET VOLUME 8.8 fL (7.4-11.0); MONOCYTES # (AUTO) 0.5 x10^3/uL (0.3-0.8); MONOCYTES % (AUTO) 5.8 % (0.0-13.0); NEUTROPHILS # (AUTO) 5.1 x10^3/uL (2.2-4.8); NEUTROPHILS % (AUTO) 62.2 % (42.0-75.0); PLATELET COUNT 251 X10^3/uL (150.0-450.0); RED BLOOD COUNT 3.96 X10^6/uL (3.5-5.4); RED CELL DISTRIBUTION WIDTH 14.5 % (11.6-16.5); WHITE BLOOD COUNT 8.1 X10^3/uL (3.6-10.0)
[2021-09-25 05:39] LABS: ALANINE AMINOTRANSFERASE 42 Units/L (12-78); ALBUMIN 2.6 g/dL (3.4-5.0); ALKALINE PHOSPHATASE 91 Units/L (46-116); ASPARTATE AMINO TRANSFERASE 33 Units/L (15-37); BLOOD UREA NITROGEN 10 mg/dL (7-18); CALCIUM 8.4 mg/dL (8.5-10.1); CARBON DIOXIDE 28.6 mmol/L (21-32); CHLORIDE 103 mmol/L (98-107); COR CA(FOR HYPOALB) 9.5 mg/dL (8.5-10.1); COR NA(FOR HYPERGLY) 140 mmol/L (136-145); CREATININE 0.91 mg/dL (0.55-1.02); SODIUM 139 mmol/L (136-145); TOTAL PROTEIN 6.2 g/dL (6.4-8.2); eGFR NON BLACK RACES > 60 (>60)
[2021-09-25] MEDS: D5 1/2 NS 1,000 ML 1,000 ML IV SCH ×3 (06:06→15:55)
[2021-09-25] MEDS: ECOTRIN TAB 325 MG PO SCH (08:53)
[2021-09-25] MEDS: HYZAAR 50/12.5 MG PO SCH (08:53)
[2021-09-25] MEDS: PriLOSEC PO SCH (08:54)
[2021-09-25] MEDS: KLONOPIN TAB 1 MG PO SCH ×2 (08:54→20:40)
[2021-09-25] MEDS: PROzac PO SCH (08:54)
[2021-09-25] MEDS: INVANZ INJ 1 GM VIAL 1 GM in NS 100 ML IV + SPIKE MINIBAG* 100 ML IV SCH (08:54)
[2021-09-25] MEDS: SYNTHROID 125 mcg TAB PO SCH (08:55)
[2021-09-25] MEDS: LOVENOX INJ 40 MG SYR SC SCH (09:32)
[2021-09-25] MEDS: COLACE CAP 100 MG PO SCH ×2 (12:24→20:40)
--- NOTE | 2021-09-25 13:12 | RAD ---
HISTORYConstipatedSTUDYKUBCOMPARISON .br.br.br.br.br nonspecific but nonobstructive bowel gas pattern is observed distal colonic gas noted to be present. No pathological soft tissue mass or calcification can be observed. The bony structures are grossly intact.IMPRESSIONA nonspecific but nonobstructive bowel gas pattern is observed with distal colonic gas noted to be present.Electronically signed by: CARSON NICHOLS (Sep 25, 2021 13:10:38)
[2021-09-25] MEDS: KLOR-CON PO PRN (17:20)
[2021-09-25] MEDS: CRESTOR TAB 10 MG PO SCH (20:40)
[2021-09-25] MEDS: FLEXERIL TAB 10 MG PO PRN (20:40)
[2021-09-26] MEDS: D5 1/2 NS 1,000 ML 1,000 ML IV SCH ×3 (01:15→17:06)
[2021-09-26 05:22] LABS: BASOPHILS # (AUTO) 0.1 X10^3/uL (0.0-0.1); BASOPHILS % (AUTO) 0.8 % (0.2-1.0); EOSINOPHILS # (AUTO) 0.2 x10^3/uL (0.0-0.2); HEMATOCRIT 38.6 % (36.0-47.0); LYMPHOCYTES # (AUTO) 2.1 X10^3/uL (1.3-2.9); LYMPHOCYTES % (AUTO) 25.9 % (21.0-51.0); MEAN CORPUSCULAR HEMOGLOBIN 31.3 pg (27.0-34.0); MEAN CORPUSCULAR HGB CONC 33.8 g/dL (33.0-35.0); MEAN CORPUSCULAR VOLUME 92.6 fL (80.0-100.0); MEAN PLATELET VOLUME 8.8 fL (7.4-11.0); MONOCYTES # (AUTO) 0.6 x10^3/uL (0.3-0.8); MONOCYTES % (AUTO) 7.9 % (0.0-13.0); NEUTROPHILS % (AUTO) 62.4 % (42.0-75.0); PLATELET COUNT 251 X10^3/uL (150.0-450.0); RED BLOOD COUNT 4.16 X10^6/uL (3.5-5.4); RED CELL DISTRIBUTION WIDTH 14.4 % (11.6-16.5); WHITE BLOOD COUNT 8.1 X10^3/uL (3.6-10.0)
[2021-09-26 05:31] LABS: ALANINE AMINOTRANSFERASE 39 Units/L (12-78); ALBUMIN 2.7 g/dL (3.4-5.0); ALKALINE PHOSPHATASE 95 Units/L (46-116); ASPARTATE AMINO TRANSFERASE 30 Units/L (15-37); BLOOD UREA NITROGEN 9 mg/dL (7-18); CALCIUM 8.9 mg/dL (8.5-10.1); CARBON DIOXIDE 30.2 mmol/L (21-32); CHLORIDE 103 mmol/L (98-107); COR CA(FOR HYPOALB) 9.9 mg/dL (8.5-10.1); COR NA(FOR HYPERGLY) 139 mmol/L (136-145); CREATININE 0.84 mg/dL (0.55-1.02); SODIUM 138 mmol/L (136-145); TOTAL PROTEIN 6.6 g/dL (6.4-8.2); eGFR NON BLACK RACES > 60 (>60)
[2021-09-26] MEDS: SYNTHROID 125 mcg TAB PO SCH (09:15)
[2021-09-26] MEDS: ECOTRIN TAB 325 MG PO SCH (09:15)
[2021-09-26] MEDS: PROzac PO SCH (09:15)
[2021-09-26] MEDS: INVANZ INJ 1 GM VIAL 1 GM in NS 100 ML IV + SPIKE MINIBAG* 100 ML IV SCH (09:15)
[2021-09-26] MEDS: HYZAAR 50/12.5 MG PO SCH (09:15)
[2021-09-26] MEDS: PriLOSEC PO SCH (09:15)
[2021-09-26] MEDS: LOVENOX INJ 40 MG SYR SC SCH (09:15)
[2021-09-26] MEDS: COLACE CAP 100 MG PO SCH ×2 (09:15→20:19)
[2021-09-26] MEDS: KLONOPIN TAB 1 MG PO SCH ×2 (09:15→20:19)
--- NOTE | 2021-09-26 12:14 | RAD ---
HISTORYDecreased oxygenSTUDYAP [id number] size similar and normal with essentially clear lungs and pleural spaces. The right lower lobe is partly obscured by diaphragm elevation.IMPRESSIONNo interval change or acute abnormality. See above description.Electronically signed by: BK CAO (Sep 26, 2021 12:12:44)
[2021-09-26] MEDS: NYSTATIN CREAM TOP SCH ×2 (15:02→22:23)
[2021-09-26] MEDS: FLEXERIL TAB 10 MG PO PRN (20:19)
[2021-09-26] MEDS: CRESTOR TAB 10 MG PO SCH (20:19)
[2021-09-27] MEDS: D5 1/2 NS 1,000 ML 1,000 ML IV SCH ×3 (00:32→18:05)
[2021-09-27] MEDS: TORADOL 15 MG VIAL IVP PRN (00:33)
[2021-09-27] MEDS: NYSTATIN CREAM TOP SCH ×3 (05:05→21:02)
[2021-09-27 05:55] LABS: BASOPHILS # (AUTO) 0.1 X10^3/uL (0.0-0.1); BASOPHILS % (AUTO) 0.8 % (0.2-1.0); EOSINOPHILS # (AUTO) 0.2 x10^3/uL (0.0-0.2); EOSINOPHILS % (AUTO) 2.7 % (0.9-2.9); HEMATOCRIT 37.6 % (36.0-47.0); HEMOGLOBIN 12.6 g/dL (12.0-16.0); LYMPHOCYTES # (AUTO) 2.5 X10^3/uL (1.3-2.9); LYMPHOCYTES % (AUTO) 30.7 % (21.0-51.0); MEAN CORPUSCULAR HEMOGLOBIN 30.9 pg (27.0-34.0); MEAN CORPUSCULAR HGB CONC 33.6 g/dL (33.0-35.0); MEAN PLATELET VOLUME 8.5 fL (7.4-11.0); MONOCYTES # (AUTO) 0.8 x10^3/uL (0.3-0.8); MONOCYTES % (AUTO) 9.5 % (0.0-13.0); NEUTROPHILS # (AUTO) 4.6 x10^3/uL (2.2-4.8); NEUTROPHILS % (AUTO) 56.3 % (42.0-75.0); PLATELET COUNT 274 X10^3/uL (150.0-450.0); RED BLOOD COUNT 4.09 X10^6/uL (3.5-5.4); RED CELL DISTRIBUTION WIDTH 14.4 % (11.6-16.5); WHITE BLOOD COUNT 8.1 X10^3/uL (3.6-10.0)
[2021-09-27 05:59] LABS: ALANINE AMINOTRANSFERASE 39 Units/L (12-78); ALBUMIN 2.7 g/dL (3.4-5.0); ALKALINE PHOSPHATASE 99 Units/L (46-116); ASPARTATE AMINO TRANSFERASE 28 Units/L (15-37); BLOOD UREA NITROGEN 10 mg/dL (7-18); CARBON DIOXIDE 33.9 mmol/L (21-32); CHLORIDE 101 mmol/L (98-107); COR NA(FOR HYPERGLY) 137 mmol/L (136-145); CREATININE 0.92 mg/dL (0.55-1.02); SODIUM 136 mmol/L (136-145); TOTAL PROTEIN 6.7 g/dL (6.4-8.2); eGFR NON BLACK RACES > 60 (>60)
[2021-09-27] MEDS: INVANZ INJ 1 GM VIAL 1 GM in NS 100 ML IV + SPIKE MINIBAG* 100 ML IV SCH (08:52)
[2021-09-27] MEDS: PriLOSEC PO SCH (08:53)
[2021-09-27] MEDS: ECOTRIN TAB 325 MG PO SCH (08:53)
[2021-09-27] MEDS: SYNTHROID 125 mcg TAB PO SCH (08:53)
[2021-09-27] MEDS: KLONOPIN TAB 1 MG PO SCH ×2 (08:53→21:02)
[2021-09-27] MEDS: PROzac PO SCH (08:53)
[2021-09-27] MEDS: HYZAAR 50/12.5 MG PO SCH (08:53)
[2021-09-27] MEDS: COLACE CAP 100 MG PO SCH ×2 (08:53→21:02)
[2021-09-27] MEDS: LOVENOX INJ 40 MG SYR SC SCH (09:05)
--- NOTE | 2021-09-27 13:37 | PCM.PROG ---
Progress Note - Progress Note for Day of Date of Exam: 09/27/21 - Subjective Subjective: Mrs. Rudolph is an 81-year-old white female, patient of Dr. Singer suffering from generalized weakness, as well as having failed outpatient urinary tract infection prior to this admission. Spouse states that he had he had been positive for COVID-19 around [facility], approximately a week to two weeks after that, she became very weak and has never tested positive. She had a severe shingles outbreak to her left lower abdomen from mid-abdomen all the way around to the mid thoracic area that has not completely resolved at this time. She also suffered from urinary tract infection and failed outpatient treatment. A culture was obtained prior to admission. She is on gentle IV hydration, as well as IV antibiotics. Her white count was down to normal. Her renal function was stable with a BUN of 10 and creatine of 0.92. She is very, very weak. Pt was able to feed her self this am with minimal assistance. The patient has not been able to ambulate. She is definitely a candidate for rehab therapy. We encouraged patient to sit up on the side of the bed with nursing staff today. Physical Therapy has also evaluated the patient. She reports that she only had a small bowel movement since Tuesday and we ordered Colace. She wants to try to use the bedside commode but currently is unstable to get up to the bedside commode. We encouraged her to use a bedpan. Her x-ray showed nonspecific, nonobstructive bowel gas pattern. She has been afebrile. Oxygen saturation dropped just a little bit around 92. She is on 2 L nasal cannula. The patient denies any chest pain or shortness of breath. Her chest x-ray showed that the lungs were clear. We encouraged her to use incentive spirometer so she does not develop pneumonia due to her bedbound status. - Past Medical Family Social History Past Med/Fam/Surg Hx: No changes since H&P Allergies: Allergies diphenhydramine [From Benadryl] Allergy (Verified 08/05/21 22:50) iodine Allergy (Verified 08/05/21 19:08) iron Allergy (Verified 08/05/21 19:08) morphine Allergy (Verified 08/05/21 22:50) Penicillins Allergy (Verified 08/05/21 22:50) - Review of Systems ROS: No change since H&P - Vital Signs and I&O's Vital Signs: Temperature 98.3 F Pulse Rate [Left Radial] 80 Pulse Rate 89 Respiratory Rate 18 Blood Pressure [Left Arm] 131/62 Blood Pressure 159/70 O2 Sat by Pulse Oximetry 97 Intake and Output: Intake & Output 09/25/21 09/26/21 09/27/21 09/28/21 11:59 11:59 11:59 11:59 Intake Total 3147 / 3147 4051 / 4051 1410 / 1410 Balance 3147 / 3147 4051 / 4051 1410 / 1410 - Physical Exam Oriented: Person Eyes: Normal Ear: Normal Nose: Normal Throat: Normal Cardiovascular: Normal : Normal Auscultation: Bowel Sounds: Normal Tenderness: Suprapubic Skin: Decreased Turgur, Red, Tender (external vaginal area, diffuse perineal) Musculoskeletal: Normal Psychiatric: Other (LETHARGIC) Mood Description: Calm Affect: Flat Speech Pattern: Clear, Appropriate - Laboratory and Diagnostics Result Diagrams: 09/27/21 05:10 09/27/21 05:10 Labs: Laboratory WBC 8.1 X10^3/uL (3.6-10.0) 09/27/21 05:10 RBC 4.09 X10^6/uL (3.5-5.4) 09/27/21 05:10 Hgb 12.6 g/dL (12.0-16.0) 09/27/21 05:10 Hct 37.6 % (36.0-47.0) 09/27/21 05:10 MCV 92.0 fL (80.0-100.0) 09/27/21 05:10 MCH 30.9 pg (27.0-34.0) 09/27/21 05:10 MCHC 33.6 g/dL (33.0-35.0) 09/27/21 05:10 RDW 14.4 % (11.6-16.5) 09/27/21 05:10 Plt Count 274 X10^3/uL (150.0-450.0) 09/27/21 05:10 MPV 8.5 fL (7.4-11.0) 09/27/21 05:10 Neut % (Auto) 56.3 % (42.0-75.0) 09/27/21 05:10 Lymph % (Auto) 30.7 % (21.0-51.0) 09/27/21 05:10 [place] % (Auto) 9.5 % (0.0-13.0) 09/27/21 05:10 Eos % (Auto) 2.7 % (0.9-2.9) 09/27/21 05:10 Baso % (Auto) 0.8 % (0.2-1.0) 09/27/21 05:10 Neut # (Auto) 4.6 x10^3/uL (2.2-4.8) 09/27/21 05:10 Lymph # (Auto) 2.5 X10^3/uL (1.3-2.9) 09/27/21 05:10 [place] # (Auto) 0.8 x10^3/uL (0.3-0.8) 09/27/21 05:10 Eos # (Auto) 0.2 x10^3/uL (0.0-0.2) 09/27/21 05:10 Baso # (Auto) 0.1 X10^3/uL (0.0-0.1) 09/27/21 05:10 Absolute Nucleated RBC 0.1 /100WBC 09/27/21 05:10 Sodium 136 mmol/L (136-145) 09/27/21 05:10 Corrected Sodium 137 mmol/L (136-145) 09/27/21 05:10 Potassium 3.5 mmol/L (3.5-5.1) 09/27/21 05:10 Chloride 101 mmol/L (98-107) 09/27/21 05:10 Carbon Dioxide 33.9 mmol/L (21-32) H 09/27/21 05:10 BUN 10 mg/dL (7-18) 09/27/21 05:10 Creatinine 0.92 mg/dL (0.55-1.02) 09/27/21 05:10 Est GFR (MDRD) Af Amer > 60 (>60) 09/27/21 05:10 Est GFR (MDRD) Non-Af > 60 (>60) 09/27/21 05:10 Glucose 122 mg/dL (65-99) H 09/27/21 05:10 POC Glucose (mg/dL) 110 mg/dL (65-99) H 09/25/21 11:55 Calcium 9.0 mg/dL (8.5-10.1) 09/27/21 05:10 Corrected Calcium 10.0 mg/dL (8.5-10.1) 09/27/21 05:10 Magnesium 2.1 mg/dL (1.7-2.9) 09/22/21 04:16 Total Bilirubin 0.30 mg/dL (0.2-1.0) 09/27/21 05:10 AST 28 Units/L (15-37) 09/27/21 05:10 ALT 39 Units/L (12-78) 09/27/21 05:10 Alkaline Phosphatase 99 Units/L (46-116) 09/27/21 05:10 Ammonia 15 umol/L (11-32) 09/22/21 09:50 Creatine Kinase 52 Units/L (26-192) 09/21/21 10:05 CK-MB (CK-2) < 1.0 ng/mL (0-4.0) 09/21/21 10:05 CK/CKMB % Calc 1.9 % (<4) 09/21/21 10:05 Troponin I 0.03 ng/mL (0-1.5) 09/21/21 10:05 Total Protein 6.7 g/dL (6.4-8.2) 09/27/21 05:10 Albumin 2.7 g/dL (3.4-5.0) L 09/27/21 05:10 Globulin 4.0 g/dL (2.5-4.5) 09/27/21 05:10 Albumin/Globulin Ratio 0.7 Ratio (1.1-2.1) L 09/27/21 05:10 Lipase 120 Units/L (73-393) 09/21/21 10:05 TSH 3rd Generation 30.092 uIU/mL (0.358-3.74) H 09/21/21 10:05 SARS-CoV-2 (PCR) Negative (NEGATIVE) 09/21/21 09:54 Influenza Type A (PCR) Negative (NEGATIVE) 09/21/21 09:54 Influenza Type B (PCR) Negative (NEGATIVE) 09/21/21 09:54 RSV (PCR) Negative (NEGATIVE) 09/21/21 09:54 - Plan (1) Acute UTI Status: Acute Plan: IV ATBX, PT, RT. RECOMMEND REHAB PLACEMENT, DISCUSSED WITH PTS DAUGHTER. CONTINUE GENTLE IV HYDRATION, ISO. PRN SUPPLEMENTAL O2. BOWEL REGIMEN (2) Hypertension Status: Acute (3) ARMAAN (generalized anxiety disorder) Status: Acute (4) Arthritis Status: Acute (5) Generalized weakness Status: Acute Plan: OBTAIN BRAIN MRI TO RULE OUT CVA (6) TIA (transient ischemic attack) Status: Acute (7) Shingles Status: Acute
[2021-09-27] MEDS: CRESTOR TAB 10 MG PO SCH (21:02)
[2021-09-27] MEDS: FLEXERIL TAB 10 MG PO PRN (21:02)
[2021-09-28] MEDS: D5 1/2 NS 1,000 ML 1,000 ML IV SCH ×2 (00:11→10:11)
[2021-09-28] MEDS: NYSTATIN CREAM TOP SCH (05:18)
[2021-09-28 05:48] LABS: BASOPHILS % (AUTO) 0.3 % (0.2-1.0); EOSINOPHILS # (AUTO) 0.2 x10^3/uL (0.0-0.2); HEMATOCRIT 38.1 % (36.0-47.0); HEMOGLOBIN 12.9 g/dL (12.0-16.0); LYMPHOCYTES # (AUTO) 2.5 X10^3/uL (1.3-2.9); MEAN CORPUSCULAR HEMOGLOBIN 31.1 pg (27.0-34.0); MEAN CORPUSCULAR HGB CONC 33.7 g/dL (33.0-35.0); MEAN CORPUSCULAR VOLUME 92.3 fL (80.0-100.0); MEAN PLATELET VOLUME 8.1 fL (7.4-11.0); MONOCYTES # (AUTO) 0.7 x10^3/uL (0.3-0.8); MONOCYTES % (AUTO) 9.2 % (0.0-13.0); NEUTROPHILS # (AUTO) 4.5 x10^3/uL (2.2-4.8); NEUTROPHILS % (AUTO) 56.5 % (42.0-75.0); PLATELET COUNT 278 X10^3/uL (150.0-450.0); RED BLOOD COUNT 4.13 X10^6/uL (3.5-5.4); RED CELL DISTRIBUTION WIDTH 14.2 % (11.6-16.5); WHITE BLOOD COUNT 7.9 X10^3/uL (3.6-10.0)
[2021-09-28 06:01] LABS: ALANINE AMINOTRANSFERASE 44 Units/L (12-78); ALBUMIN 2.6 g/dL (3.4-5.0); ALKALINE PHOSPHATASE 99 Units/L (46-116); ASPARTATE AMINO TRANSFERASE 31 Units/L (15-37); BLOOD UREA NITROGEN 12 mg/dL (7-18); CARBON DIOXIDE 32.6 mmol/L (21-32); CHLORIDE 102 mmol/L (98-107); COR CA(FOR HYPOALB) 10.1 mg/dL (8.5-10.1); COR NA(FOR HYPERGLY) 138 mmol/L (136-145); CREATININE 0.87 mg/dL (0.55-1.02); MAGNESIUM 1.7 mg/dL (1.7-2.9); SODIUM 137 mmol/L (136-145); TOTAL PROTEIN 6.6 g/dL (6.4-8.2); eGFR NON BLACK RACES > 60 (>60)
[2021-09-28] MEDS ORDERED: MILK OF MAGNESIA PO SCH ×2 (09:00→10:00)
[2021-09-28] MEDS: SYNTHROID 125 mcg TAB PO SCH (09:57)
[2021-09-28] MEDS: ECOTRIN TAB 325 MG PO SCH (09:57)
[2021-09-28] MEDS: PriLOSEC PO SCH (09:57)
[2021-09-28] MEDS: KLONOPIN TAB 1 MG PO SCH (09:57)
[2021-09-28] MEDS: HYZAAR 50/12.5 MG PO SCH (09:57)
[2021-09-28] MEDS: COLACE CAP 100 MG PO SCH (09:57)
[2021-09-28] MEDS: PROzac PO SCH (09:57)
[2021-09-28] MEDS: INVANZ INJ 1 GM VIAL 1 GM in NS 100 ML IV + SPIKE MINIBAG* 100 ML IV SCH (09:58)
[2021-09-28] MEDS ORDERED: MIRALAX POWDER (1 DOSE 17 G) PO SCH (10:00)
[2021-09-28] MEDS: LOVENOX INJ 40 MG SYR SC SCH (10:02)
[2021-09-28 12:14] VITALS: BP 146/68
== END 2021-09-28 12:00 | disposition swing bed (61) | DRG 690 ==
LOC: MED/SURG 09:13 → ER 09:13 → MED/SURG 13:40
PROVIDERS: ADMIT Internal Medicine; ATTEND Internal Medicine
DX: M19.90 Unspecified osteoarthritis, unspecified site; R53.1 Weakness; E78.2 Mixed hyperlipidemia; Z87.442 Personal history of urinary calculi; E03.8 Other specified hypothyroidism; R94.31 Abnormal electrocardiogram [ECG] [EKG]; Z86.16 Personal history of COVID-19; G45.8 Other transient cerebral ischemic attacks and related syndromes; R26.89 Other abnormalities of gait and mobility; R47.81 Slurred speech; N39.0 Urinary tract infection, site not specified; R41.82 Altered mental status, unspecified; B02.9 Zoster without complications; F41.8 Other specified anxiety disorders; B37.3 Candidiasis of vulva and vagina; Z20.822 Contact with and (suspected) exposure to COVID-19

== ENCOUNTER 2021-09-28 12:35 | Inpatient (IN) ==
[2021-09-28] MEDS ORDERED: POTASSIUM CHL 40 MEQ/NS 0.45% 500 ML IV PRN (12:59)
[2021-09-28] MEDS ORDERED: POTASSIUM CHLORIDE LIQ PO PRN (12:59)
[2021-09-28] MEDS ORDERED: KLOR-CON PO PRN (12:59)
[2021-09-28] MEDS ORDERED: K-DUR TAB 20 MEQ PO PRN (12:59)
[2021-09-28] MEDS ORDERED: K-RIDER 10 MEQ/NS 100 ML 10 MEQ/100 ML BAG IV PRN (12:59)
[2021-09-28] MEDS ORDERED: MAGNESIUM SULFATE 1 GRAM/100 mL PREMIX 1 G/100 ML BAG IV PRN (12:59)
[2021-09-28] MEDS ORDERED: BUTT CREAM (COMPOUND) TOP PRN (12:59)
[2021-09-28] MEDS ORDERED: POTASSIUM CHL 60 MEQ/NS 0.45% 500 ML IV PRN (12:59)
[2021-09-28] MEDS: NYSTATIN CREAM TOP SCH ×2 (14:00→21:05)
[2021-09-28] MEDS: MILK OF MAGNESIA PO SCH ×3 (14:00→21:05)
[2021-09-28 15:01] VITALS: BMI 32.2
--- NOTE | 2021-09-28 15:59 | PT/OTEVAL ---
PT/OT OBJECTIVES - HISTORY Prescription: OT consult Diagnosis: Weakness, UTI, AMS Precautions: fall risk PMH: arthrtis, asthma, dyslipidemia, HTN, Hypothyroidism, kidney stones Prior Level of Function: Independent - COGNITION Mental Status: Alert, Oriented, Name, Place Communication Status: Verbal Ability to Follow Directions: 1 Step - PAIN Abdomen Pain Scale: No Pain - BED MOBILITY Rolling: Maximum Scooting: Maximum Bridging: Not Tested - TRANSFERS Supine to Sit: Maximum, x2 Sit to Stand: Not Tested Sit or Stand Pivot: Not Tested - ADL'S Feeding: Supervision Grooming: Moderate Toileting: Dependent - BALANCE Static Sitting: Total Assist Standing: Not Tested Dynamic Sitting: Total Assist Standing: Not Tested - NEUROMOTOR/SENSATION Murtaza. Lower Ext Sensation: WFL Coordination: Not Tested - ROM Bilateral UE ROM: Impaired Muscle Tone: WFL Comment: AROM impaired, PROM WFL - STRENGTH Bilateral LE Strength Number: 3 Other comment: 3-/5 Bilateral UE Strength Number: 3 Other comment: 3-/5 PT/OT ASSESSMENT - OT Problem List: Decreased Mobility ADL's, Decreased Safety Aware, Decreased UE Strength, Other Other, comment: Decreased functional activity tolerance - OT GOALS Short Term Goals Days: 5 Mobility for ADL's: Will demonstrate improvement in bed mobility by requiring <50% assist. Safety Awareness: Will demonstrate safe toilet transfer w/ Part/ModA. Dressing: Will don UB clothing with Part/ModA. Upper Ext. Strength/Use: Will improve BUE strength to +1/2 MMT grade for BADLs. Other: Will demonstrate F.A.T. for >5 minutes OOB to complete BADLs. Correction Goals Days: 10 Mobility for ADL's: Will demonstrate improvement in bed mobility by requiring TouchA assist. Safety Awareness: Will demonstrate safe toilet transfer with Supv/ TouchA. Dressing: Will don UB clothing with TouchA. Upper Ext. Strength/Use: Will improve BUE strength to +1 MMT grade for BADLs. Other: Will demonstrate F.A.T. for >10 minutes OOB to complete BADLs. - PATIENT GOALS Patient/Family Goals: To go home Goals Discussed with Patient/Family: Yes Rehabilitation Potential: Good Justification for Potential: Motivated, good caregiver support Weakness and Barriers: None - PLAN Suggested Treatment Plan: Bed Mobility Training, Therapeutic Activity, Self Care Training, Therapeutic Ex with HEP, Patient Education, Family Education - FREQUENCY AND DURATION OT: 5x/wk x hospital stay Expected Continuation of Care at Discharge: Determined on Progress
--- NOTE | 2021-09-28 16:29 | PT/OTEVAL ---
PT/OT OBJECTIVES - HISTORY Prescription: PT consult Diagnosis: UTI, AMS Precautions: Falls PMH: arthrtis, asthma, dyslipidemia, HTN, Hypothyroidism, kidney stones Prior Level of Function: Independent - COGNITION Mental Status: Name, Confused, Lethargic, Decreased Safety Awarenes Communication Status: Garbled Ability to Follow Directions: 1 Step - PAIN Abdomen Pain Scale: No Pain Comments: Pt with reports of discomfort to L side trunk region (shingles lesions) - BED MOBILITY Rolling: Maximum, x2 Scooting: Maximum, x2 Bridging: Maximum, x2 - TRANSFERS Supine to Sit: Maximum, x2 Sit to Stand: Maximum, x2 Sit or Stand Pivot: Maximum, x2 - BALANCE Static Sitting: Total Assist Standing: Not Tested Balance Comment: Therapist assisted patient from supine to EOB with Max A x2 with dependence for scooting to EOB. Static sitting on EOB with patient posteriorly leaning and unable to support self in sitting. Patient tolerated sitting on EOB x2 min. Patient left sitting in bed with bed in chair position Dynamic Sitting: Total Assist Standing: Not Tested - NEUROMOTOR/SENSATION Murtaza. Lower Ext Sensation: WFL Coordination: Not Tested - STRENGTH Bilateral LE Strength Number: 3 Other comment: 3-/5 Bilateral UE Strength Number: 3 Other comment: 3-/5 - GAIT Comments: NA d/t safety concern PT/OT ASSESSMENT - PT Problem List: Decreased Bed Mobility, Decreased Transfers, Decreased Gait, Decreased Balance, Decreased Safety, Decreased LE Strength - PT GOALS Short Term Goals Days: 10 Mobility: To improve bed mobility to touch A Balance: To participate in sitting at EOB x 10 min with F sitting balance ROM/Strength: To improve B LE mm strength 1-2 mm increements from baseline Assisted Goals Days: 20 Mobility: To be independent in bed mobility to allow PLOF Transfers: To improve transfers to supv/touch A Gait: To participate in gait x >/=100 ft using LRAD Balance: To improve standing balance to F to reduce riks from falls. - OT GOALS Short Term Goals Days: 5 Mobility for ADL's: Will demonstrate improvement in bed mobility by requiring <50% assist. Safety Awareness: Will demonstrate safe toilet transfer w/ Part/ModA. Dressing: Will don UB clothing with Part/ModA. Upper Ext. Strength/Use: Will improve BUE strength to +1/2 MMT grade for BADLs. Other: Will demonstrate F.A.T. for >5 minutes OOB to complete BADLs. Assisted Goals Days: 10 Mobility for ADL's: Will demonstrate improvement in bed mobility by requiring TouchA assist. Safety Awareness: Will demonstrate safe toilet transfer with Supv/ TouchA. Dressing: Will don UB clothing with TouchA. Upper Ext. Strength/Use: Will improve BUE strength to +1 MMT grade for BADLs. Other: Will demonstrate F.A.T. for >10 minutes OOB to complete BADLs. - PATIENT GOALS Goals Discussed with Patient/Family: Yes Weakness and Barriers: Cognitive Barrier - PLAN Suggested Treatment Plan: Bed Mobility Training, Therapeutic Activity, Gait Training, Neuro Re-education, Therapeutic Ex with HEP, Patient Education, Family Education - FREQUENCY AND DURATION PT: 5x Expected Continuation of Care at Discharge: Determined on Progress
[2021-09-28] MEDS: KLONOPIN TAB 1 MG PO SCH (21:05)
[2021-09-28] MEDS: COLACE CAP 100 MG PO SCH (21:05)
[2021-09-28] MEDS: CRESTOR TAB 10 MG PO SCH (21:05)
[2021-09-29] MEDS: D5 1/2 NS 1,000 ML 1,000 ML IV SCH ×3 (01:12→16:07)
[2021-09-29] MEDS: NYSTATIN CREAM TOP SCH ×3 (06:30→21:30)
[2021-09-29] MEDS: ECOTRIN TAB 325 MG PO SCH (09:09)
[2021-09-29] MEDS: COLACE CAP 100 MG PO SCH ×2 (09:09→20:56)
[2021-09-29] MEDS: HYZAAR 50/12.5 MG PO SCH (09:09)
[2021-09-29] MEDS: KLONOPIN TAB 1 MG PO SCH ×2 (09:09→20:56)
[2021-09-29] MEDS: MILK OF MAGNESIA PO SCH ×4 (09:09→20:56)
[2021-09-29] MEDS: MIRALAX POWDER (1 DOSE 17 G) PO SCH (09:09)
[2021-09-29] MEDS: INVanz INJ 1 GRAM VIAL 1 G in NS 100 ML IV + SPIKE MINIBAG* 100 ML IV SCH (09:09)
[2021-09-29] MEDS: PROzac PO SCH (09:10)
[2021-09-29] MEDS: PriLOSEC PO SCH (09:10)
[2021-09-29] MEDS: SYNTHROID 125 mcg TAB PO SCH (09:10)
--- NOTE | 2021-09-29 10:01 | DR.UPDATE ---
H&P Update History and Physical Update: History and Physical reviewed and patient examined. PATIENT CHANGED TO SWINGBED FOR PHYSICAL THERAPY Changes noted: NO H&P Reviewed: Yes Patient was examined?: Yes
[2021-09-29] MEDS: LOVENOX INJ 40 MG SYR SC SCH (10:27)
[2021-09-29] MEDS ORDERED: ZOFRAN INJ 4 MG VIAL IVP PRN (14:15)
[2021-09-29] MEDS: CRESTOR TAB 10 MG PO SCH (20:56)
[2021-09-30] MEDS: D5 1/2 NS 1,000 ML 1,000 ML IV SCH ×3 (05:00→18:19)
[2021-09-30] MEDS: NYSTATIN CREAM TOP SCH ×3 (05:45→21:00)
[2021-09-30 06:46] LABS: BASOPHILS % (AUTO) 0.4 % (0.2-1.0); EOSINOPHILS # (AUTO) 0.3 x10^3/uL (0.0-0.2); EOSINOPHILS % (AUTO) 3.6 % (0.9-2.9); HEMATOCRIT 37.5 % (36.0-47.0); HEMOGLOBIN 12.6 g/dL (12.0-16.0); LYMPHOCYTES # (AUTO) 2.4 X10^3/uL (1.3-2.9); LYMPHOCYTES % (AUTO) 27.3 % (21.0-51.0); MEAN CORPUSCULAR HEMOGLOBIN 31.2 pg (27.0-34.0); MEAN CORPUSCULAR HGB CONC 33.7 g/dL (33.0-35.0); MEAN CORPUSCULAR VOLUME 92.6 fL (80.0-100.0); MEAN PLATELET VOLUME 8.7 fL (7.4-11.0); MONOCYTES # (AUTO) 0.8 x10^3/uL (0.3-0.8); MONOCYTES % (AUTO) 8.8 % (0.0-13.0); NEUTROPHILS # (AUTO) 5.2 x10^3/uL (2.2-4.8); NEUTROPHILS % (AUTO) 59.9 % (42.0-75.0); PLATELET COUNT 291 X10^3/uL (150.0-450.0); RED BLOOD COUNT 4.05 X10^6/uL (3.5-5.4); RED CELL DISTRIBUTION WIDTH 14.4 % (11.6-16.5); WHITE BLOOD COUNT 8.7 X10^3/uL (3.6-10.0)
[2021-09-30 07:20] LABS: ALANINE AMINOTRANSFERASE 43 Units/L (12-78); ALBUMIN 2.6 g/dL (3.4-5.0); ALKALINE PHOSPHATASE 100 Units/L (46-116); ASPARTATE AMINO TRANSFERASE 33 Units/L (15-37); BLOOD UREA NITROGEN 12 mg/dL (7-18); CALCIUM 8.7 mg/dL (8.5-10.1); CARBON DIOXIDE 34.3 mmol/L (21-32); CHLORIDE 100 mmol/L (98-107); COR CA(FOR HYPOALB) 9.8 mg/dL (8.5-10.1); COR NA(FOR HYPERGLY) 139 mmol/L (136-145); CREATININE 0.75 mg/dL (0.55-1.02); GLUCOSE 128 mg/dL (65-99); POTASSIUM 4.2 mmol/L (3.5-5.1); SODIUM 138 mmol/L (136-145); TOTAL PROTEIN 6.7 g/dL (6.4-8.2); eGFR NON BLACK RACES > 60 (>60)
[2021-09-30] MEDS: INVanz INJ 1 GRAM VIAL 1 G in NS 100 ML IV + SPIKE MINIBAG* 100 ML IV SCH (08:42)
[2021-09-30] MEDS: ECOTRIN TAB 325 MG PO SCH (08:42)
[2021-09-30] MEDS: PriLOSEC PO SCH (08:42)
[2021-09-30] MEDS: KLONOPIN TAB 1 MG PO SCH ×2 (08:42→21:00)
[2021-09-30] MEDS: COLACE CAP 100 MG PO SCH ×2 (08:43→21:00)
[2021-09-30] MEDS: PROzac PO SCH (08:43)
[2021-09-30] MEDS: HYZAAR 50/12.5 MG PO SCH (08:43)
[2021-09-30] MEDS: MIRALAX POWDER (1 DOSE 17 G) PO SCH (08:43)
[2021-09-30] MEDS: LOVENOX INJ 40 MG SYR SC SCH (08:43)
[2021-09-30] MEDS: MILK OF MAGNESIA PO SCH ×4 (08:43→21:01)
[2021-09-30] MEDS: SYNTHROID 125 mcg TAB PO SCH (08:44)
--- NOTE | 2021-09-30 12:58 | SP.EVAL ---
SPEECH EVALUATION - History Prescription: Refer to EMR Prior Level of Function: Independent - Objective Prior level of function: Independent Driving Status: Patient Drives - Cognition Mental Status: Alert, Confused, Lethargic Ability to Follow Directions: 1 Step Retains: with delay Memory Loss: Short term memory loss - Communication Status Communication Status: Verbal - Oral/Motor Examination Motor/Speech: Dysarthia Swallowing: Extra Effort to Chew Diet Tolerated: Well - Speech Goals Short Term Goals Decreased Swallow: Oral: Patient will increase oral phase of swallow. Others: Patient will increase cognition skills to WFL Intermediate Goals Decreased Swallow: Oral: Pt will consume LRD with no s/s of aspiration. Others: Patient will increase cognition skills from moderate to WFL. - Assessment Goals discussed with family?: Yes Patient/Family Goals: Gain strength and return home - Rehabilitation Rehabilitation Potential: Fair; waning in participation - Suggested Treatment Plan Suggested Treatment: Speech/Hearing Therapy, Swallow/Oral Function Th. - Discharge Plan Expected Discharge Disposition: Home
[2021-09-30] MEDS: CRESTOR TAB 10 MG PO SCH (21:00)
[2021-10-01] MEDS: NYSTATIN CREAM TOP SCH ×3 (06:14→21:16)
[2021-10-01] MEDS: D5 1/2 NS 1,000 ML 1,000 ML IV SCH ×3 (06:14→18:28)
[2021-10-01] MEDS: INVanz INJ 1 GRAM VIAL 1 G in NS 100 ML IV + SPIKE MINIBAG* 100 ML IV SCH (09:11)
[2021-10-01] MEDS: SYNTHROID 125 mcg TAB PO SCH (09:12)
[2021-10-01] MEDS: COLACE CAP 100 MG PO SCH ×2 (09:12→21:15)
[2021-10-01] MEDS: ECOTRIN TAB 325 MG PO SCH (09:12)
[2021-10-01] MEDS: PriLOSEC PO SCH (09:12)
[2021-10-01] MEDS: PROzac PO SCH (09:12)
[2021-10-01] MEDS: KLONOPIN TAB 1 MG PO SCH ×2 (09:13→21:16)
[2021-10-01] MEDS: MIRALAX POWDER (1 DOSE 17 G) PO SCH (09:13)
[2021-10-01] MEDS: HYZAAR 50/12.5 MG PO SCH (09:13)
[2021-10-01] MEDS: LOVENOX INJ 40 MG SYR SC SCH (09:13)
--- NOTE | 2021-10-01 11:37 | PCM.PROG ---
Progress Note - Progress Note for Day of Date of Exam: 10/01/21 - Subjective Subjective: WAS ADMITTED TO [facility] FOR PHYSICAL THERAPY AND REHAB. SHE IS CURRENTLY STILL RECEIVING IV ANTIBIOTICS FOR TREATMENT OF A UTI. TODAY, SHE IS ALERT AND ORIENTED, LYING IN BED ON MORNING ROUNDS. SHE CONTINUES WITH GENERALIZED WEAKNESS AND CONTINUES TO REQUIRE ASSISTANCE WITH AMBULATING AND ADLs. ON EXAMINATION, HEART IS REGULAR IN RATE AND RHYTHM. BILATERAL LUNGS ARE NOTED WITH DIMINISHED LUNG SOUNDS THROUGHOUT. ABDOMEN IS ROUND, SOFT, AND NON-TENDER WITH NORMAL BOWEL SOUNDS NOTED IN ALL QUADRANTS. HER VITALS THIS MORNING ARE: 98.9-83-20-97%-134/61. LABS WERE OBTAINED YESTERDAY. SHE IS HEMODYNAMICALLY STABLE. SHE IS CURRENTLY RECEIVING D5 NS AT 75 ML/HR, INVANZ 1G IV DAILY, LOVENOX 40MG SC DAILY, ECOTRIN 325MG PO DAILY, CRESTOR 10MG PO HS, THE POTASSIUM AND MAGNESIUM PROTOCOLS, ZOFRAN 4MG IV Q6H PRN, TORADOL 15MG IV Q6H PRN, AND HER HOME MEDICATIONS OF LIPITOR 40MG PO DAILY, KLONOPIN 1MG PO BID, FLEXERIL 10MG PO TID PRN, PROZAC 20MG PO DAILY, HYZAAR, SYNTHROID, AND PRILOSEC WERE RESUMED. WE WILL HAVE PHYSICAL, OCCUPATIONAL, AND SPEECH THERAPIES CONTINUE TO WORK WITH PATIENT TODAY. OTHERWISE, WE PLAN TO FOLLOW UP WITH AM LABS AND CONTINUE TO MONITOR. - Past Medical Family Social History Past Med/Fam/Surg Hx: No changes since H&P Allergies: Allergies diphenhydramine [From Benadryl] Allergy (Verified 08/05/21 22:50) iodine Allergy (Verified 08/05/21 19:08) iron Allergy (Verified 08/05/21 19:08) morphine Allergy (Verified 08/05/21 22:50) Penicillins Allergy (Verified 08/05/21 22:50) - Review of Systems ROS: No change since H&P - Vital Signs and I&O's Vital Signs: Temperature 98.9 F Pulse Rate [Brachial] 83 Pulse Rate 81 Respiratory Rate 20 Blood Pressure [Left Arm] 134/61 O2 Sat by Pulse Oximetry 97 Intake and Output: Intake & Output 09/28/21 09/29/21 09/30/21 10/01/21 11:59 11:59 11:59 11:59 Intake Total 2520 1339 / 1339 Balance 2520 / 1338 - Physical Exam Oriented: Normal Eyes: Normal Ear: Normal Nose: Normal Throat: Normal Respiratory: Generalized, Diminished Cardiovascular: Normal : Normal Auscultation: Bowel Sounds: Normal Palpation: Normal Tenderness: Normal Skin: Normal Musculoskeletal: Normal Psychiatric: Normal Mood Description: Calm Affect: Normal Speech Pattern: Clear, Appropriate - Laboratory and Diagnostics Result Diagrams: 09/30/21 05:49 09/30/21 05:49 Labs: Laboratory WBC 8.7 X10^3/uL (3.6-10.0) 09/30/21 05:49 RBC 4.05 X10^6/uL (3.5-5.4) 09/30/21 05:49 Hgb 12.6 g/dL (12.0-16.0) 09/30/21 05:49 Hct 37.5 % (36.0-47.0) 09/30/21 05:49 MCV 92.6 fL (80.0-100.0) 09/30/21 05:49 MCH 31.2 pg (27.0-34.0) 09/30/21 05:49 MCHC 33.7 g/dL (33.0-35.0) 09/30/21 05:49 RDW 14.4 % (11.6-16.5) 09/30/21 05:49 Plt Count 291 X10^3/uL (150.0-450.0) 09/30/21 05:49 MPV 8.7 fL (7.4-11.0) 09/30/21 05:49 Neut % (Auto) 59.9 % (42.0-75.0) 09/30/21 05:49 Lymph % (Auto) 27.3 % (21.0-51.0) 09/30/21 05:49 [place] % (Auto) 8.8 % (0.0-13.0) 09/30/21 05:49 Eos % (Auto) 3.6 % (0.9-2.9) H 09/30/21 05:49 Baso % (Auto) 0.4 % (0.2-1.0) 09/30/21 05:49 Neut # (Auto) 5.2 x10^3/uL (2.2-4.8) H 09/30/21 05:49 Lymph # (Auto) 2.4 X10^3/uL (1.3-2.9) 09/30/21 05:49 [place] # (Auto) 0.8 x10^3/uL (0.3-0.8) 09/30/21 05:49 Eos # (Auto) 0.3 x10^3/uL (0.0-0.2) H 09/30/21 05:49 Baso # (Auto) 0.0 X10^3/uL (0.0-0.1) 09/30/21 05:49 Absolute Nucleated RBC 0.1 /100WBC 09/30/21 05:49 Sodium 138 mmol/L (136-145) 09/30/21 05:49 Corrected Sodium 139 mmol/L (136-145) 09/30/21 05:49 Potassium 4.2 mmol/L (3.5-5.1) 09/30/21 05:49 Chloride 100 mmol/L (98-107) 09/30/21 05:49 Carbon Dioxide 34.3 mmol/L (21-32) H 09/30/21 05:49 BUN 12 mg/dL (7-18) 09/30/21 05:49 Creatinine 0.75 mg/dL (0.55-1.02) 09/30/21 05:49 Est GFR (MDRD) Af Amer > 60 (>60) 09/30/21 05:49 Est GFR (MDRD) Non-Af > 60 (>60) 09/30/21 05:49 Glucose 128 mg/dL (65-99) H 09/30/21 05:49 Calcium 8.7 mg/dL (8.5-10.1) 09/30/21 05:49 Corrected Calcium 9.8 mg/dL (8.5-10.1) 09/30/21 05:49 Total Bilirubin 0.40 mg/dL (0.2-1.0) 09/30/21 05:49 AST 33 Units/L (15-37) 09/30/21 05:49 ALT 43 Units/L (12-78) 09/30/21 05:49 Alkaline Phosphatase 100 Units/L (46-116) 09/30/21 05:49 Total Protein 6.7 g/dL (6.4-8.2) 09/30/21 05:49 Albumin 2.6 g/dL (3.4-5.0) L 09/30/21 05:49 Globulin 4.1 g/dL (2.5-4.5) 09/30/21 05:49 Albumin/Globulin Ratio 0.6 Ratio (1.1-2.1) L 09/30/21 05:49 - Plan (1) Acute UTI Status: Acute (2) Generalized weakness Status: Acute (3) TIA (transient ischemic attack) Status: Acute
[2021-10-01] MEDS: MILK OF MAGNESIA PO SCH ×3 (14:08→21:16)
[2021-10-01] MEDS: CRESTOR TAB 10 MG PO SCH (21:15)
[2021-10-02] MEDS: NYSTATIN CREAM TOP SCH ×3 (06:05→22:13)
[2021-10-02] MEDS: D5 1/2 NS 1,000 ML 1,000 ML IV SCH ×4 (06:05→21:54)
[2021-10-02 06:22] LABS: BASOPHILS % (AUTO) 0.3 % (0.2-1.0); EOSINOPHILS # (AUTO) 0.5 x10^3/uL (0.0-0.2); EOSINOPHILS % (AUTO) 5.3 % (0.9-2.9); HEMATOCRIT 35.7 % (36.0-47.0); HEMOGLOBIN 12.2 g/dL (12.0-16.0); LYMPHOCYTES # (AUTO) 2.6 X10^3/uL (1.3-2.9); LYMPHOCYTES % (AUTO) 28.2 % (21.0-51.0); MEAN CORPUSCULAR HEMOGLOBIN 31.5 pg (27.0-34.0); MEAN CORPUSCULAR HGB CONC 34.1 g/dL (33.0-35.0); MEAN CORPUSCULAR VOLUME 92.4 fL (80.0-100.0); MEAN PLATELET VOLUME 8.6 fL (7.4-11.0); MONOCYTES # (AUTO) 0.7 x10^3/uL (0.3-0.8); MONOCYTES % (AUTO) 7.9 % (0.0-13.0); NEUTROPHILS # (AUTO) 5.3 x10^3/uL (2.2-4.8); NEUTROPHILS % (AUTO) 58.3 % (42.0-75.0); PLATELET COUNT 261 X10^3/uL (150.0-450.0); RED BLOOD COUNT 3.86 X10^6/uL (3.5-5.4); RED CELL DISTRIBUTION WIDTH 14.3 % (11.6-16.5); WHITE BLOOD COUNT 9.1 X10^3/uL (3.6-10.0)
[2021-10-02 06:31] LABS: ALANINE AMINOTRANSFERASE 34 Units/L (12-78); ALBUMIN 2.6 g/dL (3.4-5.0); ALKALINE PHOSPHATASE 96 Units/L (46-116); ASPARTATE AMINO TRANSFERASE 21 Units/L (15-37); BLOOD UREA NITROGEN 10 mg/dL (7-18); CALCIUM 9.2 mg/dL (8.5-10.1); CARBON DIOXIDE 33.3 mmol/L (21-32); CHLORIDE 101 mmol/L (98-107); COR CA(FOR HYPOALB) 10.3 mg/dL (8.5-10.1); COR NA(FOR HYPERGLY) 137 mmol/L (136-145); GLUCOSE 128 mg/dL (65-99); POTASSIUM 3.8 mmol/L (3.5-5.1); SODIUM 136 mmol/L (136-145); TOTAL PROTEIN 6.8 g/dL (6.4-8.2); eGFR NON BLACK RACES > 60 (>60)
[2021-10-02] MEDS: MIRALAX POWDER (1 DOSE 17 G) PO SCH (08:36)
[2021-10-02] MEDS: INVanz INJ 1 GRAM VIAL 1 G in NS 100 ML IV + SPIKE MINIBAG* 100 ML IV SCH (08:36)
[2021-10-02] MEDS: LOVENOX INJ 40 MG SYR SC SCH (08:36)
[2021-10-02] MEDS: PriLOSEC PO SCH (08:37)
[2021-10-02] MEDS: PROzac PO SCH (08:37)
[2021-10-02] MEDS: KLONOPIN TAB 1 MG PO SCH ×2 (08:37→21:56)
[2021-10-02] MEDS: HYZAAR 50/12.5 MG PO SCH (08:37)
[2021-10-02] MEDS: COLACE CAP 100 MG PO SCH ×2 (08:37→22:16)
[2021-10-02] MEDS: ECOTRIN TAB 325 MG PO SCH (08:38)
[2021-10-02] MEDS: SYNTHROID 125 mcg TAB PO SCH (08:38)
[2021-10-02] MEDS: MILK OF MAGNESIA PO SCH ×4 (10:07→21:58)
[2021-10-02] MEDS: TORADOL 15 MG VIAL IVP PRN (21:59)
[2021-10-02] MEDS: CRESTOR TAB 10 MG PO SCH (21:59)
[2021-10-03] MEDS: D5 1/2 NS 1,000 ML 1,000 ML IV SCH ×3 (00:40→16:26)
[2021-10-03] MEDS: NYSTATIN CREAM TOP SCH ×3 (06:06→22:04)
[2021-10-03] MEDS: MIRALAX POWDER (1 DOSE 17 G) PO SCH (08:37)
[2021-10-03] MEDS: PROzac PO SCH (08:43)
[2021-10-03] MEDS: INVanz INJ 1 GRAM VIAL 1 G in NS 100 ML IV + SPIKE MINIBAG* 100 ML IV SCH (08:43)
[2021-10-03] MEDS: KLONOPIN TAB 1 MG PO SCH ×2 (08:43→22:03)
[2021-10-03] MEDS: HYZAAR 50/12.5 MG PO SCH (08:43)
[2021-10-03] MEDS: ECOTRIN TAB 325 MG PO SCH (08:43)
[2021-10-03] MEDS: SYNTHROID 125 mcg TAB PO SCH (08:43)
[2021-10-03] MEDS: COLACE CAP 100 MG PO SCH ×2 (08:44→22:03)
[2021-10-03] MEDS: LOVENOX INJ 40 MG SYR SC SCH (08:44)
[2021-10-03] MEDS: PriLOSEC PO SCH (08:45)
[2021-10-03] MEDS: MILK OF MAGNESIA PO SCH ×4 (08:48→22:02)
[2021-10-03] MEDS: TORADOL 15 MG VIAL IVP PRN (13:58)
[2021-10-03] MEDS: CRESTOR TAB 10 MG PO SCH (22:03)
[2021-10-04] MEDS: NYSTATIN CREAM TOP SCH ×3 (06:19→21:07)
[2021-10-04] MEDS: D5 1/2 NS 1,000 ML 1,000 ML IV SCH ×4 (06:19→21:06)
[2021-10-04] MEDS: COLACE CAP 100 MG PO SCH ×2 (08:23→21:06)
[2021-10-04] MEDS: ECOTRIN TAB 325 MG PO SCH (08:24)
[2021-10-04] MEDS: KLONOPIN TAB 1 MG PO SCH ×2 (08:24→21:07)
[2021-10-04] MEDS: HYZAAR 50/12.5 MG PO SCH (08:24)
[2021-10-04] MEDS: INVanz INJ 1 GRAM VIAL 1 G in NS 100 ML IV + SPIKE MINIBAG* 100 ML IV SCH (08:24)
[2021-10-04] MEDS: PROzac PO SCH (08:25)
[2021-10-04] MEDS: LOVENOX INJ 40 MG SYR SC SCH (08:25)
[2021-10-04] MEDS: PriLOSEC PO SCH (08:25)
[2021-10-04] MEDS: SYNTHROID 125 mcg TAB PO SCH (08:25)
[2021-10-04] MEDS: MILK OF MAGNESIA PO SCH ×4 (08:25→21:07)
[2021-10-04] MEDS: MIRALAX POWDER (1 DOSE 17 G) PO SCH (08:26)
--- NOTE | 2021-10-04 11:03 | PCM.PROG ---
Progress Note Progress Note for Day of Date of Exam: 10/04/21 Subjective Subjective: WAS ADMITTED TO [facility] FOR PHYSICAL THERAPY AND REHAB. SHE IS CURRENTLY RECEIVING IV ANTIBIOTICS FOR TREATMENT OF A UTI. TTHIS MORNING SHE IS LYING IN BED COMFORTABLY. NO ACUTE CONCERNS. SHE CONTINUES WITH GENERALIZED WEAKNESS AND CONTINUES TO REQUIRE ASSISTANCE WITH AMBULATING AND ADLs. ON EXAMINATION, HEART IS REGULAR IN RATE AND RHYTHM. BILATERAL LUNGS ARE NOTED WITH DIMINISHED LUNG SOUNDS THROUGHOUT. ABDOMEN IS ROUND, SOFT, AND NON- TENDER WITH NORMAL BOWEL SOUNDS NOTED IN ALL QUADRANTS. SHE IS HEMODYNAMICALLY STABLE. SHE IS CURRENTLY RECEIVING D5 NS AT 75 ML/HR, INVANZ 1G IV DAILY, LOVENOX 40MG SC DAILY, ECOTRIN 325MG PO DAILY, CRESTOR 10MG PO HS, THE POTASSIUM AND MAGNESIUM PROTOCOLS, ZOFRAN 4MG IV Q6H PRN, TORADOL 15MG IV Q6H PRN, AND HER HOME MEDICATIONS OF LIPITOR 40MG PO DAILY, KLONOPIN 1MG PO BID, FLEXERIL 10MG PO TID PRN, PROZAC 20MG PO DAILY, HYZAAR, SYNTHROID, AND PRILOSEC. WILL CONTINUE WITH PHYSICAL, OCCUPATIONAL, AND SPEECH THERAPIES. OTHERWISE, WE PLAN TO FOLLOW UP WITH AM LABS AND CONTINUE TO MONITOR. Past Medical Family Social History Past Med/Fam/Surg Hx: No changes since H&P Allergies: Allergies diphenhydramine [From Benadryl] Allergy (Verified 08/05/21 22:50) iodine Allergy (Verified 08/05/21 19:08) iron Allergy (Verified 08/05/21 19:08) morphine Allergy (Verified 08/05/21 22:50) Penicillins Allergy (Verified 08/05/21 22:50) Review of Systems ROS: No change since H&P Vital Signs and I&O's Vital Signs: Temperature 97.7 F Pulse Rate [Brachial] 90 Pulse Rate 83 Respiratory Rate 20 Blood Pressure [Right Arm] 150/70 Blood Pressure [Left Arm] 153/67 O2 Sat by Pulse Oximetry 92 Intake and Output: Intake & Output 10/01/21 10/02/21 10/03/21 10/04/21 23:59 23:59 23:59 23:59 Intake Total 1519 / 1519 2379 / 2379 2220 / 2220 1290 / 1290 Balance 1519 / 1519 2379 / 2379 2220 / 2220 1290 / 1290 Physical Exam Oriented: Normal Eyes: Normal Ear: Normal Nose: Normal Throat: Normal Respiratory: Generalized and Diminished Cardiovascular: Normal : Normal Auscultation: Bowel Sounds: Normal Tenderness: Normal Skin: Normal Musculoskeletal: Normal Psychiatric: Normal Mood Description: Calm Affect: Normal Speech Pattern: Clear and Appropriate Laboratory and Diagnostics Result Diagrams: 10/02/21 05:30 10/02/21 05:30 Labs: Laboratory WBC 9.1 X10^3/uL (3.6-10.0) 10/02/21 05:30 RBC 3.86 X10^6/uL (3.5-5.4) 10/02/21 05:30 Hgb 12.2 g/dL (12.0-16.0) 10/02/21 05:30 Hct 35.7 % (36.0-47.0) L 10/02/21 05:30 MCV 92.4 fL (80.0-100.0) 10/02/21 05:30 MCH 31.5 pg (27.0-34.0) 10/02/21 05:30 MCHC 34.1 g/dL (33.0-35.0) 10/02/21 05:30 RDW 14.3 % (11.6-16.5) 10/02/21 05:30 Plt Count 261 X10^3/uL (150.0-450.0) 10/02/21 05:30 MPV 8.6 fL (7.4-11.0) 10/02/21 05:30 Neut % (Auto) 58.3 % (42.0-75.0) 10/02/21 05:30 Lymph % (Auto) 28.2 % (21.0-51.0) 10/02/21 05:30 [place] % (Auto) 7.9 % (0.0-13.0) 10/02/21 05:30 Eos % (Auto) 5.3 % (0.9-2.9) H 10/02/21 05:30 Baso % (Auto) 0.3 % (0.2-1.0) 10/02/21 05:30 Neut # (Auto) 5.3 x10^3/uL (2.2-4.8) H 10/02/21 05:30 Lymph # (Auto) 2.6 X10^3/uL (1.3-2.9) 10/02/21 05:30 [place] # (Auto) 0.7 x10^3/uL (0.3-0.8) 10/02/21 05:30 Eos # (Auto) 0.5 x10^3/uL (0.0-0.2) H 10/02/21 05:30 Baso # (Auto) 0.0 X10^3/uL (0.0-0.1) 10/02/21 05:30 Absolute Nucleated RBC 0.0 /100WBC 10/02/21 05:30 Sodium 136 mmol/L (136-145) 10/02/21 05:30 Corrected Sodium 137 mmol/L (136-145) 10/02/21 05:30 Potassium 3.8 mmol/L (3.5-5.1) 10/02/21 05:30 Chloride 101 mmol/L (98-107) 10/02/21 05:30 Carbon Dioxide 33.3 mmol/L (21-32) H 10/02/21 05:30 BUN 10 mg/dL (7-18) 10/02/21 05:30 Creatinine 0.80 mg/dL (0.55-1.02) 10/02/21 05:30 Est GFR (MDRD) Af Amer > 60 (>60) 10/02/21 05:30 Est GFR (MDRD) Non-Af > 60 (>60) 10/02/21 05:30 Glucose 128 mg/dL (65-99) H 10/02/21 05:30 Calcium 9.2 mg/dL (8.5-10.1) 10/02/21 05:30 Corrected Calcium 10.3 mg/dL (8.5-10.1) H 10/02/21 05:30 Total Bilirubin 0.30 mg/dL (0.2-1.0) 10/02/21 05:30 AST 21 Units/L (15-37) 10/02/21 05:30 ALT 34 Units/L (12-78) 10/02/21 05:30 Alkaline Phosphatase 96 Units/L (46-116) 10/02/21 05:30 Total Protein 6.8 g/dL (6.4-8.2) 10/02/21 05:30 Albumin 2.6 g/dL (3.4-5.0) L 10/02/21 05:30 Globulin 4.2 g/dL (2.5-4.5) 10/02/21 05:30 Albumin/Globulin Ratio 0.6 Ratio (1.1-2.1) L 10/02/21 05:30 Plan (1) Acute UTI: Status: Acute (2) Generalized weakness: Status: Acute (3) TIA (transient ischemic attack): Status: Acute
[2021-10-04] MEDS: TYLENOL 325 MG TAB PO PRN (12:58)
[2021-10-04] MEDS: FLEXERIL TAB 10 MG PO PRN (13:03)
[2021-10-04] MEDS ORDERED: TORADOL 15 MG VIAL IM ONE (15:22)
[2021-10-04] MEDS ORDERED: MAALOX or MYLANTA PO PRN (15:49)
--- NOTE | 2021-10-04 16:11 | RAD ---
HISTORYABD PAINSTUDYKUBCOMPARISONNoneTECH NIQUEAP supine projection, 1 imageFINDINGSGas in nondistended colon.No gross free air.No abnormal calcifications.No acute osseous abnormality.IMPRESSIONNo acute intra-abdominal abnormality detected.Electronically signed by: Venu Cerrato (Oct 04, 2021 16:09:08)
[2021-10-04] MEDS: CRESTOR TAB 10 MG PO SCH (21:07)
[2021-10-05] MEDS: D5 1/2 NS 1,000 ML 1,000 ML IV SCH ×2 (03:46→08:33)
[2021-10-05] MEDS: NYSTATIN CREAM TOP SCH ×3 (05:37→21:00)
[2021-10-05 06:24] LABS: BASOPHILS # (AUTO) 0.1 X10^3/uL (0.0-0.1); BASOPHILS % (AUTO) 0.8 % (0.2-1.0); EOSINOPHILS # (AUTO) 0.5 x10^3/uL (0.0-0.2); EOSINOPHILS % (AUTO) 6.1 % (0.9-2.9); HEMATOCRIT 34.9 % (36.0-47.0); HEMOGLOBIN 11.7 g/dL (12.0-16.0); LYMPHOCYTES # (AUTO) 2.6 X10^3/uL (1.3-2.9); LYMPHOCYTES % (AUTO) 29.9 % (21.0-51.0); MEAN CORPUSCULAR HEMOGLOBIN 30.9 pg (27.0-34.0); MEAN CORPUSCULAR HGB CONC 33.4 g/dL (33.0-35.0); MEAN CORPUSCULAR VOLUME 92.4 fL (80.0-100.0); MEAN PLATELET VOLUME 8.6 fL (7.4-11.0); MONOCYTES # (AUTO) 0.6 x10^3/uL (0.3-0.8); NEUTROPHILS # (AUTO) 4.8 x10^3/uL (2.2-4.8); NEUTROPHILS % (AUTO) 56.2 % (42.0-75.0); PLATELET COUNT 258 X10^3/uL (150.0-450.0); RED BLOOD COUNT 3.78 X10^6/uL (3.5-5.4); RED CELL DISTRIBUTION WIDTH 13.7 % (11.6-16.5); WHITE BLOOD COUNT 8.5 X10^3/uL (3.6-10.0)
[2021-10-05 06:46] LABS: ALANINE AMINOTRANSFERASE 24 Units/L (12-78); ALBUMIN 2.5 g/dL (3.4-5.0); ALKALINE PHOSPHATASE 88 Units/L (46-116); ASPARTATE AMINO TRANSFERASE 20 Units/L (15-37); BLOOD UREA NITROGEN 10 mg/dL (7-18); CALCIUM 9.4 mg/dL (8.5-10.1); CARBON DIOXIDE 31.5 mmol/L (21-32); CHLORIDE 104 mmol/L (98-107); COR CA(FOR HYPOALB) 10.6 mg/dL (8.5-10.1); COR NA(FOR HYPERGLY) 143 mmol/L (136-145); CREATININE 0.73 mg/dL (0.55-1.02); GLUCOSE 111 mg/dL (65-99); POTASSIUM 3.9 mmol/L (3.5-5.1); SODIUM 143 mmol/L (136-145); TOTAL PROTEIN 6.6 g/dL (6.4-8.2); eGFR NON BLACK RACES > 60 (>60)
[2021-10-05] MEDS: ECOTRIN TAB 325 MG PO SCH (08:33)
[2021-10-05] MEDS: PROzac PO SCH (08:33)
[2021-10-05] MEDS: HYZAAR 50/12.5 MG PO SCH (08:33)
[2021-10-05] MEDS: SYNTHROID 125 mcg TAB PO SCH (08:34)
[2021-10-05] MEDS: KLONOPIN TAB 1 MG PO SCH ×2 (08:34→21:00)
[2021-10-05] MEDS: COLACE CAP 100 MG PO SCH ×2 (08:34→20:59)
[2021-10-05] MEDS: INVanz INJ 1 GRAM VIAL 1 G in NS 100 ML IV + SPIKE MINIBAG* 100 ML IV SCH (08:34)
[2021-10-05] MEDS: PriLOSEC PO SCH (08:34)
[2021-10-05] MEDS: MIRALAX POWDER (1 DOSE 17 G) PO SCH (08:34)
[2021-10-05] MEDS: MILK OF MAGNESIA PO SCH ×4 (08:35→21:00)
[2021-10-05] MEDS: LOVENOX INJ 40 MG SYR SC SCH (09:08)
[2021-10-05] MEDS: CRESTOR TAB 10 MG PO SCH (20:59)
[2021-10-05] MEDS: FLEXERIL TAB 10 MG PO PRN (20:59)
[2021-10-06] MEDS: NYSTATIN CREAM TOP SCH ×3 (05:56→22:20)
[2021-10-06] MEDS: ECOTRIN TAB 325 MG PO SCH (09:07)
[2021-10-06] MEDS: COLACE CAP 100 MG PO SCH ×2 (09:07→20:32)
[2021-10-06] MEDS: KLONOPIN TAB 1 MG PO SCH ×2 (09:08→20:33)
[2021-10-06] MEDS: MIRALAX POWDER (1 DOSE 17 G) PO SCH (09:08)
[2021-10-06] MEDS: HYZAAR 50/12.5 MG PO SCH (09:08)
[2021-10-06] MEDS: LOVENOX INJ 40 MG SYR SC SCH (09:08)
[2021-10-06] MEDS: PROzac PO SCH (09:08)
[2021-10-06] MEDS: PriLOSEC PO SCH (09:08)
[2021-10-06] MEDS: MILK OF MAGNESIA PO SCH ×4 (09:08→20:33)
[2021-10-06] MEDS: SYNTHROID 125 mcg TAB PO SCH (09:09)
[2021-10-06] MEDS: CRESTOR TAB 10 MG PO SCH (20:33)
[2021-10-06] MEDS: FLEXERIL TAB 10 MG PO PRN (20:33)
[2021-10-07] MEDS: NYSTATIN CREAM TOP SCH ×4 (05:20→21:13)
[2021-10-07 06:59] LABS: BASOPHILS # (AUTO) 0.1 X10^3/uL (0.0-0.1); BASOPHILS % (AUTO) 0.7 % (0.2-1.0); EOSINOPHILS # (AUTO) 0.3 x10^3/uL (0.0-0.2); EOSINOPHILS % (AUTO) 4.3 % (0.9-2.9); HEMATOCRIT 36.1 % (36.0-47.0); HEMOGLOBIN 12.2 g/dL (12.0-16.0); LYMPHOCYTES # (AUTO) 2.1 X10^3/uL (1.3-2.9); LYMPHOCYTES % (AUTO) 26.8 % (21.0-51.0); MEAN CORPUSCULAR HEMOGLOBIN 31.3 pg (27.0-34.0); MEAN CORPUSCULAR HGB CONC 33.9 g/dL (33.0-35.0); MEAN CORPUSCULAR VOLUME 92.2 fL (80.0-100.0); MEAN PLATELET VOLUME 8.8 fL (7.4-11.0); MONOCYTES # (AUTO) 0.6 x10^3/uL (0.3-0.8); MONOCYTES % (AUTO) 7.1 % (0.0-13.0); NEUTROPHILS # (AUTO) 4.9 x10^3/uL (2.2-4.8); NEUTROPHILS % (AUTO) 61.1 % (42.0-75.0); PLATELET COUNT 238 X10^3/uL (150.0-450.0); RED BLOOD COUNT 3.91 X10^6/uL (3.5-5.4)
[2021-10-07 07:21] LABS: ALANINE AMINOTRANSFERASE 24 Units/L (12-78); ALBUMIN 2.7 g/dL (3.4-5.0); ALKALINE PHOSPHATASE 90 Units/L (46-116); ASPARTATE AMINO TRANSFERASE 16 Units/L (15-37); BLOOD UREA NITROGEN 12 mg/dL (7-18); CALCIUM 9.7 mg/dL (8.5-10.1); CHLORIDE 103 mmol/L (98-107); COR CA(FOR HYPOALB) 10.7 mg/dL (8.5-10.1); GLUCOSE 101 mg/dL (65-99); POTASSIUM 4.1 mmol/L (3.5-5.1); SODIUM 143 mmol/L (136-145); eGFR NON BLACK RACES > 60 (>60)
[2021-10-07] MEDS: HYZAAR 50/12.5 MG PO SCH (10:20)
[2021-10-07] MEDS: ECOTRIN TAB 325 MG PO SCH (10:20)
[2021-10-07] MEDS: SYNTHROID 125 mcg TAB PO SCH (10:20)
[2021-10-07] MEDS: COLACE CAP 100 MG PO SCH ×2 (10:20→20:50)
[2021-10-07] MEDS: PROzac PO SCH (10:20)
[2021-10-07] MEDS: LOVENOX INJ 40 MG SYR SC SCH (10:21)
[2021-10-07] MEDS: PriLOSEC PO SCH (10:21)
[2021-10-07] MEDS: KLONOPIN TAB 1 MG PO SCH ×2 (10:21→20:51)
[2021-10-07] MEDS: MIRALAX POWDER (1 DOSE 17 G) PO SCH (10:21)
[2021-10-07] MEDS: MILK OF MAGNESIA PO SCH ×4 (10:23→20:51)
--- NOTE | 2021-10-07 12:26 | PCM.PROG ---
Progress Note - Progress Note for Day of Date of Exam: 10/07/21 - Subjective Subjective: WAS ADMITTED TO [facility] FOR PHYSICAL THERAPY AND REHAB FOLLOWING A TIA. TODAY, SHE IS ALERT AND ORIENTED, LYING IN BED ON MORNING ROUNDS. SHE CONTINUES WITH GENERALIZED WEAKNESS AND CONTINUES TO REQUIRE ASSISTANCE WITH AMBULATING. SHE DOES ADMIT TO SLIGHT IMPROVEMENT IN SYMPTOMS SINCE WE LAST SAW HER. ON EXAMINATION, HEART IS REGULAR IN RATE AND RHYTHM. BILATERAL LUNGS ARE NOTED WITH DIMINISHED LUNG SOUNDS THROUGHOUT. ABDOMEN IS ROUND, SOFT, AND NON-TENDER WITH NORMAL BOWEL SOUNDS NOTED IN ALL QUADRANTS. HER VITALS THIS MORNING ARE: 97.6-91-20-93%-132/61. LABS WERE OBTAINED THIS MORNING. SHE IS HEMODYNAMICALLY STABLE. SHE IS CURRENTLY RECEIVING LOVENOX 40MG SC DAILY, ECOTRIN 325MG PO DAILY, CRESTOR 10MG PO HS, THE POTASSIUM AND MAGNESIUM PROTOCOLS, ZOFRAN 4MG IV Q6H PRN, TORADOL 15MG IV Q6H PRN, TYLENOL 650MG PO Q6H PRN, MAALOX 30ML PO Q4H PRN, AND HER HOME MEDICATIONS OF LIPITOR 40MG PO DAILY, KLONOPIN 1MG PO BID, FLEXERIL 10MG PO TID PRN, PROZAC 20MG PO DAILY, HYZAAR, SYNTHROID, AND PRILOSEC WERE RESUMED. SHE HAS BEEN COOPERATIVE WITH PHYSICAL THERAPY. THEY WILL CONTINUE TO WORK WITH HER DAILY. OTHERWISE, WE PLAN TO MONITOR AND MAKE CHANGES ACCORDINGLY. TIME SPENT ON CLINICAL ASSESSMENT, REVIEWING LABS AND IMAGING, DECISION MAKING, AND DOCUMENTATION WAS GREATER THAN 45 MINUTES. - Past Medical Family Social History Past Med/Fam/Surg Hx: No changes since H&P Allergies: Allergies diphenhydramine [From Benadryl] Allergy (Verified 08/05/21 22:50) iodine Allergy (Verified 08/05/21 19:08) iron Allergy (Verified 08/05/21 19:08) ketorolac [From Toradol] Allergy (Verified 10/04/21 16:02) morphine Allergy (Verified 08/05/21 22:50) Penicillins Allergy (Verified 08/05/21 22:50) - Review of Systems ROS: No change since H&P - Vital Signs and I&O's Vital Signs: Temperature 98.3 F Pulse Rate [Brachial] 85 Pulse Rate 89 Respiratory Rate 20 Blood Pressure [Right Arm] 171/76 Blood Pressure [Left Arm] 153/67 O2 Sat by Pulse Oximetry 97 Intake and Output: Intake & Output 10/05/21 10/06/21 10/07/21 10/08/21 11:59 11:59 11:59 11:59 Intake Total 2024 500 / 500 745 / 745 Balance 2024 500 / 500 745 / 745 - Physical Exam Oriented: Normal Eyes: Normal Ear: Normal Nose: Normal Throat: Normal Respiratory: Generalized, Diminished Cardiovascular: Normal : Normal Auscultation: Bowel Sounds: Normal Tenderness: Normal Skin: Normal Musculoskeletal: Normal Psychiatric: Normal Mood Description: Calm Affect: Normal Speech Pattern: Clear, Appropriate - Laboratory and Diagnostics Result Diagrams: 10/07/21 06:03 10/07/21 06:03 Labs: Laboratory WBC 8.0 X10^3/uL (3.6-10.0) 10/07/21 06:03 RBC 3.91 X10^6/uL (3.5-5.4) 10/07/21 06:03 Hgb 12.2 g/dL (12.0-16.0) 10/07/21 06:03 Hct 36.1 % (36.0-47.0) 10/07/21 06:03 MCV 92.2 fL (80.0-100.0) 10/07/21 06:03 MCH 31.3 pg (27.0-34.0) 10/07/21 06:03 MCHC 33.9 g/dL (33.0-35.0) 10/07/21 06:03 RDW 14.0 % (11.6-16.5) 10/07/21 06:03 Plt Count 238 X10^3/uL (150.0-450.0) 10/07/21 06:03 MPV 8.8 fL (7.4-11.0) 10/07/21 06:03 Neut % (Auto) 61.1 % (42.0-75.0) 10/07/21 06:03 Lymph % (Auto) 26.8 % (21.0-51.0) 10/07/21 06:03 [place] % (Auto) 7.1 % (0.0-13.0) 10/07/21 06:03 Eos % (Auto) 4.3 % (0.9-2.9) H 10/07/21 06:03 Baso % (Auto) 0.7 % (0.2-1.0) 10/07/21 06:03 Neut # (Auto) 4.9 x10^3/uL (2.2-4.8) H 10/07/21 06:03 Lymph # (Auto) 2.1 X10^3/uL (1.3-2.9) 10/07/21 06:03 [place] # (Auto) 0.6 x10^3/uL (0.3-0.8) 10/07/21 06:03 Eos # (Auto) 0.3 x10^3/uL (0.0-0.2) H 10/07/21 06:03 Baso # (Auto) 0.1 X10^3/uL (0.0-0.1) 10/07/21 06:03 Absolute Nucleated RBC 0.0 /100WBC 10/07/21 06:03 Sodium 143 mmol/L (136-145) 10/07/21 06:03 Corrected Sodium TNP 10/07/21 06:03 Potassium 4.1 mmol/L (3.5-5.1) 10/07/21 06:03 Chloride 103 mmol/L (98-107) 10/07/21 06:03 Carbon Dioxide 35.0 mmol/L (21-32) H 10/07/21 06:03 BUN 12 mg/dL (7-18) 10/07/21 06:03 Creatinine 0.70 mg/dL (0.55-1.02) 10/07/21 06:03 Est GFR (MDRD) Af Amer > 60 (>60) 10/07/21 06:03 Est GFR (MDRD) Non-Af > 60 (>60) 10/07/21 06:03 Glucose 101 mg/dL (65-99) H 10/07/21 06:03 Calcium 9.7 mg/dL (8.5-10.1) 10/07/21 06:03 Corrected Calcium 10.7 mg/dL (8.5-10.1) H 10/07/21 06:03 Total Bilirubin 0.40 mg/dL (0.2-1.0) 10/07/21 06:03 AST 16 Units/L (15-37) 10/07/21 06:03 ALT 24 Units/L (12-78) 10/07/21 06:03 Alkaline Phosphatase 90 Units/L (46-116) 10/07/21 06:03 Total Protein 7.0 g/dL (6.4-8.2) 10/07/21 06:03 Albumin 2.7 g/dL (3.4-5.0) L 10/07/21 06:03 Globulin 4.3 g/dL (2.5-4.5) 10/07/21 06:03 Albumin/Globulin Ratio 0.6 Ratio (1.1-2.1) L 10/07/21 06:03 - Plan (1) Acute UTI Status: Acute (2) Generalized weakness Status: Acute (3) TIA (transient ischemic attack) Status: Acute
[2021-10-07] MEDS: TYLENOL 325 MG TAB PO PRN (19:35)
[2021-10-07] MEDS: FLEXERIL TAB 10 MG PO PRN (20:40)
[2021-10-07] MEDS: CRESTOR TAB 10 MG PO SCH (20:50)
[2021-10-08] MEDS: MILK OF MAGNESIA PO SCH (09:06)
[2021-10-08] MEDS: MIRALAX POWDER (1 DOSE 17 G) PO SCH (09:06)
[2021-10-08] MEDS: LOVENOX INJ 40 MG SYR SC SCH (09:06)
[2021-10-08] MEDS: COLACE CAP 100 MG PO SCH ×2 (09:07→21:29)
[2021-10-08] MEDS: HYZAAR 50/12.5 MG PO SCH (09:07)
[2021-10-08] MEDS: ECOTRIN TAB 325 MG PO SCH (09:07)
[2021-10-08] MEDS: PriLOSEC PO SCH (09:07)
[2021-10-08] MEDS: KLONOPIN TAB 1 MG PO SCH ×2 (09:07→21:29)
[2021-10-08] MEDS: PROzac PO SCH (09:07)
[2021-10-08] MEDS: SYNTHROID 125 mcg TAB PO SCH (09:07)
[2021-10-08] MEDS: NYSTATIN CREAM TOP SCH ×2 (15:16→21:29)
[2021-10-08] MEDS: TYLENOL 325 MG TAB PO PRN (18:25)
[2021-10-08] MEDS: CRESTOR TAB 10 MG PO SCH (21:29)
[2021-10-08] MEDS: FLEXERIL TAB 10 MG PO PRN ×2 (21:30→21:34)
[2021-10-09 06:07] LABS: BASOPHILS # (AUTO) 0.1 X10^3/uL (0.0-0.1); BASOPHILS % (AUTO) 0.8 % (0.2-1.0); EOSINOPHILS # (AUTO) 0.4 x10^3/uL (0.0-0.2); EOSINOPHILS % (AUTO) 5.6 % (0.9-2.9); HEMATOCRIT 39.4 % (36.0-47.0); HEMOGLOBIN 13.3 g/dL (12.0-16.0); LYMPHOCYTES # (AUTO) 2.8 X10^3/uL (1.3-2.9); LYMPHOCYTES % (AUTO) 35.1 % (21.0-51.0); MEAN CORPUSCULAR HEMOGLOBIN 31.3 pg (27.0-34.0); MEAN CORPUSCULAR HGB CONC 33.7 g/dL (33.0-35.0); MEAN CORPUSCULAR VOLUME 92.8 fL (80.0-100.0); MEAN PLATELET VOLUME 8.6 fL (7.4-11.0); MONOCYTES # (AUTO) 0.6 x10^3/uL (0.3-0.8); MONOCYTES % (AUTO) 7.9 % (0.0-13.0); NEUTROPHILS % (AUTO) 50.6 % (42.0-75.0); PLATELET COUNT 239 X10^3/uL (150.0-450.0); RED BLOOD COUNT 4.25 X10^6/uL (3.5-5.4); RED CELL DISTRIBUTION WIDTH 13.8 % (11.6-16.5); WHITE BLOOD COUNT 7.9 X10^3/uL (3.6-10.0)
[2021-10-09 06:27] LABS: ALANINE AMINOTRANSFERASE 24 Units/L (12-78); ALKALINE PHOSPHATASE 98 Units/L (46-116); ASPARTATE AMINO TRANSFERASE 21 Units/L (15-37); BLOOD UREA NITROGEN 10 mg/dL (7-18); CALCIUM 9.9 mg/dL (8.5-10.1); CARBON DIOXIDE 33.7 mmol/L (21-32); CHLORIDE 103 mmol/L (98-107); COR CA(FOR HYPOALB) 10.7 mg/dL (8.5-10.1); COR NA(FOR HYPERGLY) 142 mmol/L (136-145); CREATININE 0.72 mg/dL (0.55-1.02); GLUCOSE 115 mg/dL (65-99); POTASSIUM 3.6 mmol/L (3.5-5.1); SODIUM 142 mmol/L (136-145); TOTAL PROTEIN 7.5 g/dL (6.4-8.2); eGFR NON BLACK RACES > 60 (>60)
[2021-10-09] MEDS: NYSTATIN CREAM TOP SCH ×3 (07:21→21:07)
[2021-10-09] MEDS: HYZAAR 50/12.5 MG PO SCH (08:04)
[2021-10-09] MEDS: KLONOPIN TAB 1 MG PO SCH ×2 (08:04→21:07)
[2021-10-09] MEDS: COLACE CAP 100 MG PO SCH ×2 (08:04→21:06)
[2021-10-09] MEDS: ECOTRIN TAB 325 MG PO SCH (08:04)
[2021-10-09] MEDS: SYNTHROID 125 mcg TAB PO SCH (08:05)
[2021-10-09] MEDS: PriLOSEC PO SCH (08:05)
[2021-10-09] MEDS: MIRALAX POWDER (1 DOSE 17 G) PO SCH (08:05)
[2021-10-09] MEDS: PROzac PO SCH (08:05)
[2021-10-09] MEDS: LOVENOX INJ 40 MG SYR SC SCH (08:06)
[2021-10-09] MEDS: MICRO K EXTEN CAP 10 MEQ PO PRN (09:32)
[2021-10-09] MEDS: FLEXERIL TAB 10 MG PO PRN (21:05)
[2021-10-09] MEDS: CRESTOR TAB 10 MG PO SCH (21:06)
[2021-10-10] MEDS: NYSTATIN CREAM TOP SCH ×3 (05:24→21:32)
[2021-10-10] MEDS: ECOTRIN TAB 325 MG PO SCH (10:00)
[2021-10-10] MEDS: KLONOPIN TAB 1 MG PO SCH ×2 (10:00→20:22)
[2021-10-10] MEDS: COLACE CAP 100 MG PO SCH ×2 (10:00→20:20)
[2021-10-10] MEDS: HYZAAR 50/12.5 MG PO SCH (10:01)
[2021-10-10] MEDS: SYNTHROID 125 mcg TAB PO SCH (10:02)
[2021-10-10] MEDS: PriLOSEC PO SCH (10:02)
[2021-10-10] MEDS: PROzac PO SCH (10:02)
[2021-10-10] MEDS: MIRALAX POWDER (1 DOSE 17 G) PO SCH (10:02)
[2021-10-10] MEDS: LOVENOX INJ 40 MG SYR SC SCH (10:03)
[2021-10-10] MEDS: CRESTOR TAB 10 MG PO SCH (20:20)
[2021-10-11] MEDS: NYSTATIN CREAM TOP SCH ×3 (05:02→21:00)
[2021-10-11] MEDS: LOVENOX INJ 40 MG SYR SC SCH (08:26)
[2021-10-11] MEDS: ECOTRIN TAB 325 MG PO SCH (08:27)
[2021-10-11] MEDS: PROzac PO SCH (08:27)
[2021-10-11] MEDS: COLACE CAP 100 MG PO SCH ×2 (08:27→20:35)
[2021-10-11] MEDS: HYZAAR 50/12.5 MG PO SCH (08:27)
[2021-10-11] MEDS: PriLOSEC PO SCH (08:27)
[2021-10-11] MEDS: MIRALAX POWDER (1 DOSE 17 G) PO SCH (08:27)
[2021-10-11] MEDS: KLONOPIN TAB 1 MG PO SCH ×2 (08:27→20:35)
[2021-10-11] MEDS: MICRO K EXTEN CAP 10 MEQ PO PRN (08:28)
[2021-10-11] MEDS: SYNTHROID 125 mcg TAB PO SCH (08:28)
[2021-10-11] MEDS: TYLENOL 325 MG TAB PO PRN (14:59)
[2021-10-11] MEDS: CRESTOR TAB 10 MG PO SCH (20:35)
[2021-10-12] MEDS: NYSTATIN CREAM TOP SCH ×3 (05:29→21:35)
[2021-10-12 05:35] LABS: BASOPHILS # (AUTO) 0.1 X10^3/uL (0.0-0.1); EOSINOPHILS # (AUTO) 0.4 x10^3/uL (0.0-0.2); EOSINOPHILS % (AUTO) 5.8 % (0.9-2.9); HEMATOCRIT 38.8 % (36.0-47.0); HEMOGLOBIN 12.9 g/dL (12.0-16.0); LYMPHOCYTES # (AUTO) 2.9 X10^3/uL (1.3-2.9); LYMPHOCYTES % (AUTO) 37.3 % (21.0-51.0); MEAN CORPUSCULAR HEMOGLOBIN 30.8 pg (27.0-34.0); MEAN CORPUSCULAR HGB CONC 33.1 g/dL (33.0-35.0); MEAN PLATELET VOLUME 9.1 fL (7.4-11.0); MONOCYTES # (AUTO) 0.6 x10^3/uL (0.3-0.8); MONOCYTES % (AUTO) 8.4 % (0.0-13.0); NEUTROPHILS # (AUTO) 3.7 x10^3/uL (2.2-4.8); NEUTROPHILS % (AUTO) 47.5 % (42.0-75.0); PLATELET COUNT 219 X10^3/uL (150.0-450.0); RED BLOOD COUNT 4.17 X10^6/uL (3.5-5.4); RED CELL DISTRIBUTION WIDTH 14.4 % (11.6-16.5); WHITE BLOOD COUNT 7.7 X10^3/uL (3.6-10.0)
[2021-10-12 05:42] LABS: ALANINE AMINOTRANSFERASE 26 Units/L (12-78); ALKALINE PHOSPHATASE 84 Units/L (46-116); ASPARTATE AMINO TRANSFERASE 19 Units/L (15-37); BLOOD UREA NITROGEN 17 mg/dL (7-18); CALCIUM 9.8 mg/dL (8.5-10.1); CARBON DIOXIDE 33.5 mmol/L (21-32); CHLORIDE 105 mmol/L (98-107); COR CA(FOR HYPOALB) 10.6 mg/dL (8.5-10.1); COR NA(FOR HYPERGLY) 144 mmol/L (136-145); CREATININE 0.87 mg/dL (0.55-1.02); GLUCOSE 116 mg/dL (65-99); POTASSIUM 4.6 mmol/L (3.5-5.1); SODIUM 144 mmol/L (136-145); TOTAL PROTEIN 7.3 g/dL (6.4-8.2); eGFR NON BLACK RACES > 60 (>60)
[2021-10-12] MEDS: COLACE CAP 100 MG PO SCH ×2 (08:48→20:48)
[2021-10-12] MEDS: MIRALAX POWDER (1 DOSE 17 G) PO SCH (08:48)
[2021-10-12] MEDS: PriLOSEC PO SCH (08:48)
[2021-10-12] MEDS: SYNTHROID 125 mcg TAB PO SCH (08:48)
[2021-10-12] MEDS: ECOTRIN TAB 325 MG PO SCH (08:48)
[2021-10-12] MEDS: PROzac PO SCH (08:48)
[2021-10-12] MEDS: HYZAAR 50/12.5 MG PO SCH (08:48)
[2021-10-12] MEDS: KLONOPIN TAB 1 MG PO SCH ×2 (08:48→20:49)
--- NOTE | 2021-10-12 09:33 | PCM.PROG ---
Progress Note - Progress Note for Day of Date of Exam: 10/12/21 - Subjective Subjective: WAS ADMITTED TO [facility] FOR PHYSICAL THERAPY AND REHAB FOLLOWING A TIA. TODAY, SHE IS ALERT AND ORIENTED, LYING IN BED ON MORNING ROUNDS. SHE CONTINUES WITH GENERALIZED WEAKNESS AND CONTINUES TO REQUIRE ASSISTANCE WITH AMBULATING. SHE DOES ADMIT TO SLIGHT IMPROVEMENT IN SYMPTOMS SINCE WE LAST SAW HER. ON EXAMINATION, HEART IS REGULAR IN RATE AND RHYTHM. BILATERAL LUNGS ARE NOTED WITH DIMINISHED LUNG SOUNDS THROUGHOUT. ABDOMEN IS ROUND, SOFT, AND NON-TENDER WITH NORMAL BOWEL SOUNDS NOTED IN ALL QUADRANTS. HER VITALS THIS MORNING ARE: 97.9-95-20-95%-172/72. LABS WERE OBTAINED THIS MORNING. SHE IS HEMODYNAMICALLY STABLE. SHE IS CURRENTLY RECEIVING LOVENOX 40MG SC DAILY, ECOTRIN 325MG PO DAILY, CRESTOR 10MG PO HS, THE POTASSIUM AND MAGNESIUM PROTOCOLS, ZOFRAN 4MG IV Q6H PRN, TORADOL 15MG IV Q6H PRN, TYLENOL 650MG PO Q6H PRN, MAALOX 30ML PO Q4H PRN, AND HER HOME MEDICATIONS OF LIPITOR 40MG PO DAILY, KLONOPIN 1MG PO BID, FLEXERIL 10MG PO TID PRN, PROZAC 20MG PO DAILY, HYZAAR, SYNTHROID, AND PRILOSEC WERE RESUMED. SHE HAS BEEN COOPERATIVE WITH PHYSICAL THERAPY. THEY WILL CONTINUE TO WORK WITH HER DAILY. OTHERWISE, WE PLAN TO MONITOR AND MAKE CHANGES ACCORDINGLY. TIME SPENT ON CLINICAL ASSESSMENT, REVIEWING LABS AND IMAGING, DECISION MAKING, AND DOCUMENTATION WAS GREATER THAN 45 MINUTES. - Past Medical Family Social History Past Med/Fam/Surg Hx: No changes since H&P Allergies: Allergies diphenhydramine [From Benadryl] Allergy (Verified 08/05/21 22:50) iodine Allergy (Verified 08/05/21 19:08) iron Allergy (Verified 08/05/21 19:08) ketorolac [From Toradol] Allergy (Verified 10/04/21 16:02) morphine Allergy (Verified 08/05/21 22:50) Penicillins Allergy (Verified 08/05/21 22:50) - Review of Systems ROS: No change since H&P - Vital Signs and I&O's Vital Signs: Temperature 97.9 F Pulse Rate [Brachial] 95 Pulse Rate 88 Respiratory Rate 20 Blood Pressure [Right Arm] 119/76 Blood Pressure [Left Arm] 172/72 O2 Sat by Pulse Oximetry 95 Intake and Output: Intake & Output 10/09/21 10/10/21 10/11/21 10/12/21 11:59 11:59 11:59 11:59 Intake Total 960 / 960 910 / 910 705 / 705 700 / 700 Balance 960 / 960 910 / 910 705 / 705 700 / 700 - Physical Exam Oriented: Normal Eyes: Normal Ear: Normal Nose: Normal Throat: Normal Respiratory: Generalized, Diminished Cardiovascular: Normal : Normal Auscultation: Bowel Sounds: Normal Tenderness: Normal Skin: Normal Musculoskeletal: Normal Psychiatric: Normal Mood Description: Calm Affect: Normal Speech Pattern: Clear, Appropriate - Laboratory and Diagnostics Result Diagrams: 10/12/21 05:02 10/12/21 05:02 Labs: Laboratory WBC 7.7 X10^3/uL (3.6-10.0) 10/12/21 05:02 RBC 4.17 X10^6/uL (3.5-5.4) 10/12/21 05:02 Hgb 12.9 g/dL (12.0-16.0) 10/12/21 05:02 Hct 38.8 % (36.0-47.0) 10/12/21 05:02 MCV 93.0 fL (80.0-100.0) 10/12/21 05:02 MCH 30.8 pg (27.0-34.0) 10/12/21 05:02 MCHC 33.1 g/dL (33.0-35.0) 10/12/21 05:02 RDW 14.4 % (11.6-16.5) 10/12/21 05:02 Plt Count 219 X10^3/uL (150.0-450.0) 10/12/21 05:02 MPV 9.1 fL (7.4-11.0) 10/12/21 05:02 Neut % (Auto) 47.5 % (42.0-75.0) 10/12/21 05:02 Lymph % (Auto) 37.3 % (21.0-51.0) 10/12/21 05:02 [place] % (Auto) 8.4 % (0.0-13.0) 10/12/21 05:02 Eos % (Auto) 5.8 % (0.9-2.9) H 10/12/21 05:02 Baso % (Auto) 1.0 % (0.2-1.0) 10/12/21 05:02 Neut # (Auto) 3.7 x10^3/uL (2.2-4.8) 10/12/21 05:02 Lymph # (Auto) 2.9 X10^3/uL (1.3-2.9) 10/12/21 05:02 [place] # (Auto) 0.6 x10^3/uL (0.3-0.8) 10/12/21 05:02 Eos # (Auto) 0.4 x10^3/uL (0.0-0.2) H 10/12/21 05:02 Baso # (Auto) 0.1 X10^3/uL (0.0-0.1) 10/12/21 05:02 Absolute Nucleated RBC 0.1 /100WBC 10/12/21 05:02 Sodium 144 mmol/L (136-145) 10/12/21 05:02 Corrected Sodium 144 mmol/L (136-145) 10/12/21 05:02 Potassium 4.6 mmol/L (3.5-5.1) 10/12/21 05:02 Chloride 105 mmol/L (98-107) 10/12/21 05:02 Carbon Dioxide 33.5 mmol/L (21-32) H 10/12/21 05:02 BUN 17 mg/dL (7-18) 10/12/21 05:02 Creatinine 0.87 mg/dL (0.55-1.02) 10/12/21 05:02 Est GFR (MDRD) Af Amer > 60 (>60) 10/12/21 05:02 Est GFR (MDRD) Non-Af > 60 (>60) 10/12/21 05:02 Glucose 116 mg/dL (65-99) H 10/12/21 05:02 Calcium 9.8 mg/dL (8.5-10.1) 10/12/21 05:02 Corrected Calcium 10.6 mg/dL (8.5-10.1) H 10/12/21 05:02 Total Bilirubin 0.40 mg/dL (0.2-1.0) 10/12/21 05:02 AST 19 Units/L (15-37) 10/12/21 05:02 ALT 26 Units/L (12-78) 10/12/21 05:02 Alkaline Phosphatase 84 Units/L (46-116) 10/12/21 05:02 Total Protein 7.3 g/dL (6.4-8.2) 10/12/21 05:02 Albumin 3.0 g/dL (3.4-5.0) L 10/12/21 05:02 Globulin 4.3 g/dL (2.5-4.5) 10/12/21 05:02 Albumin/Globulin Ratio 0.7 Ratio (1.1-2.1) L 10/12/21 05:02 - Plan (1) Acute UTI Status: Acute (2) Generalized weakness Status: Acute (3) TIA (transient ischemic attack) Status: Acute
[2021-10-12] MEDS: LOVENOX INJ 40 MG SYR SC SCH (09:44)
[2021-10-12] MEDS: TYLENOL 325 MG TAB PO PRN (17:13)
[2021-10-12] MEDS: CRESTOR TAB 10 MG PO SCH (20:49)
[2021-10-13] MEDS: NYSTATIN CREAM TOP SCH ×3 (06:10→21:37)
[2021-10-13] MEDS: ECOTRIN TAB 325 MG PO SCH (08:38)
[2021-10-13] MEDS: COLACE CAP 100 MG PO SCH ×2 (08:38→21:37)
[2021-10-13] MEDS: HYZAAR 50/12.5 MG PO SCH (08:38)
[2021-10-13] MEDS: KLONOPIN TAB 1 MG PO SCH ×2 (08:38→21:37)
[2021-10-13] MEDS: PriLOSEC PO SCH (08:39)
[2021-10-13] MEDS: PROzac PO SCH (08:39)
[2021-10-13] MEDS: LOVENOX INJ 40 MG SYR SC SCH (08:39)
[2021-10-13] MEDS: SYNTHROID 125 mcg TAB PO SCH (08:39)
[2021-10-13] MEDS: MIRALAX POWDER (1 DOSE 17 G) PO SCH (08:39)
[2021-10-13] MEDS: TYLENOL 325 MG TAB PO PRN (15:31)
[2021-10-13] MEDS: FLEXERIL TAB 10 MG PO PRN (16:57)
[2021-10-13] MEDS: CRESTOR TAB 10 MG PO SCH (21:37)
[2021-10-14] MEDS: NYSTATIN CREAM TOP SCH ×3 (06:08→21:13)
[2021-10-14 06:13] LABS: BASOPHILS % (AUTO) 0.6 % (0.2-1.0); EOSINOPHILS # (AUTO) 0.3 x10^3/uL (0.0-0.2); EOSINOPHILS % (AUTO) 4.8 % (0.9-2.9); HEMATOCRIT 39.8 % (36.0-47.0); HEMOGLOBIN 13.3 g/dL (12.0-16.0); LYMPHOCYTES # (AUTO) 2.6 X10^3/uL (1.3-2.9); LYMPHOCYTES % (AUTO) 38.4 % (21.0-51.0); MEAN CORPUSCULAR HEMOGLOBIN 31.2 pg (27.0-34.0); MEAN CORPUSCULAR HGB CONC 33.4 g/dL (33.0-35.0); MEAN CORPUSCULAR VOLUME 93.4 fL (80.0-100.0); MEAN PLATELET VOLUME 9.1 fL (7.4-11.0); MONOCYTES # (AUTO) 0.5 x10^3/uL (0.3-0.8); MONOCYTES % (AUTO) 8.1 % (0.0-13.0); NEUTROPHILS # (AUTO) 3.2 x10^3/uL (2.2-4.8); NEUTROPHILS % (AUTO) 48.1 % (42.0-75.0); PLATELET COUNT 220 X10^3/uL (150.0-450.0); RED BLOOD COUNT 4.27 X10^6/uL (3.5-5.4); RED CELL DISTRIBUTION WIDTH 14.1 % (11.6-16.5); WHITE BLOOD COUNT 6.7 X10^3/uL (3.6-10.0)
[2021-10-14 06:40] LABS: ALANINE AMINOTRANSFERASE 26 Units/L (12-78); ALBUMIN 3.1 g/dL (3.4-5.0); ALKALINE PHOSPHATASE 84 Units/L (46-116); ASPARTATE AMINO TRANSFERASE 16 Units/L (15-37); BLOOD UREA NITROGEN 17 mg/dL (7-18); CALCIUM 9.6 mg/dL (8.5-10.1); CARBON DIOXIDE 32.5 mmol/L (21-32); CHLORIDE 103 mmol/L (98-107); COR CA(FOR HYPOALB) 10.3 mg/dL (8.5-10.1); COR NA(FOR HYPERGLY) 142 mmol/L (136-145); CREATININE 0.84 mg/dL (0.55-1.02); GLUCOSE 114 mg/dL (65-99); POTASSIUM 3.9 mmol/L (3.5-5.1); SODIUM 142 mmol/L (136-145); TOTAL PROTEIN 7.3 g/dL (6.4-8.2); eGFR NON BLACK RACES > 60 (>60)
[2021-10-14] MEDS: LOVENOX INJ 40 MG SYR SC SCH (09:06)
[2021-10-14] MEDS: ECOTRIN TAB 325 MG PO SCH (09:07)
[2021-10-14] MEDS: PriLOSEC PO SCH (09:07)
[2021-10-14] MEDS: COLACE CAP 100 MG PO SCH ×2 (09:07→20:31)
[2021-10-14] MEDS: SYNTHROID 125 mcg TAB PO SCH (09:07)
[2021-10-14] MEDS: HYZAAR 50/12.5 MG PO SCH (09:07)
[2021-10-14] MEDS: PROzac PO SCH (09:07)
[2021-10-14] MEDS: FLEXERIL TAB 10 MG PO PRN (09:07)
[2021-10-14] MEDS: KLONOPIN TAB 1 MG PO SCH ×2 (09:10→20:31)
[2021-10-14] MEDS: MIRALAX POWDER (1 DOSE 17 G) PO SCH (09:10)
[2021-10-14] MEDS: CRESTOR TAB 10 MG PO SCH (20:31)
[2021-10-14] MEDS: TYLENOL 325 MG TAB PO PRN (20:32)
[2021-10-15] MEDS: NYSTATIN CREAM TOP SCH ×2 (05:12→13:44)
[2021-10-15 08:30] VITALS: BP 131/61; PULSE 96; TEMP 98.2; O2SAT 90
[2021-10-15] MEDS: HYZAAR 50/12.5 MG PO SCH (09:48)
[2021-10-15] MEDS: COLACE CAP 100 MG PO SCH (09:48)
[2021-10-15] MEDS: LOVENOX INJ 40 MG SYR SC SCH (09:48)
[2021-10-15] MEDS: KLONOPIN TAB 1 MG PO SCH (09:48)
[2021-10-15] MEDS: ECOTRIN TAB 325 MG PO SCH (09:48)
[2021-10-15] MEDS: PriLOSEC PO SCH (09:50)
[2021-10-15] MEDS: SYNTHROID 125 mcg TAB PO SCH (09:50)
[2021-10-15] MEDS: MIRALAX POWDER (1 DOSE 17 G) PO SCH (09:50)
[2021-10-15] MEDS: PROzac PO SCH (09:50)
== END 2021-10-15 14:40 ==
LOC: MED/SURG 12:37
PROVIDERS: ADMIT Internal Medicine; ATTEND Internal Medicine